=== PATIENT | female | born 1970 | race Caucasian/White ===

== ENCOUNTER 2020-10-03 08:34 | Outpatient (REF) | payer BC, SELFPAY ==
[2020-10-03 11:10] LABS: MANUAL DIFF FLAG NO
[2020-10-03 11:17] LABS: Glucose Urine UA NEG (NEG); Leukocyte Esterase Urine NEG (NEG); Nitrite Urine NEG (NEG); PH 5.5 (5.0-8.0); Specific Gravity - Urine 1.025 (1.005-1.025); Urine Blood NEG (NEG); Urine Ketones NEG (NEG); Urine Protein NEG (NEG-TRACE)
[2020-10-03 11:23] LABS: Basophils Absolute Auto 0.1 X10*3/uL (0.0-0.2); Basophils Percent Auto 0.9 % (0-2); Eosinophils Absolute Auto 0.5 X10*3/uL (0.0-0.4); Eosinophils Percent Auto 8.3 % (0-4); Hematocrit 40.2 % (37-47); Hemoglobin 13.2 g/dl (12.0-16.0); Imm Gran Abs Auto 0.02 X10*3/uL (0.00-0.03); Imm Gran Pct Auto 0.3 % (0.0-0.4); Lymphocytes Absolute Auto 1.7 X10*3/uL (1.2-4.9); Lymphocytes Percent Auto 28.6 % (20-40); Mean Corpuscular HGB Conc 32.8 g/dl (31.0-35.0); Mean Corpuscular Hemoglobin 31.4 pg (27.0-33.0); Mean Corpuscular Volume 95.5 fL (80-98); Mean Platelet Volume 10.9 fL (9.4-12.3); Monocytes Absolute Auto 0.4 X10*3/uL (0.1-1.2); Monocytes Percent Auto 7.6 % (2-11); Neutrophils Absolute Auto 3.2 X10*3/uL (2.0-8.3); Neutrophils Percent Auto 54.3 % (45-73); Platelet Count 224 X10*3/uL (160-400); Red Blood Count 4.21 X10*6/uL (4.20-5.50); Red Cell Distribution Width 11.9 % (11.0-16.0); White Blood Count 5.8 X10*3/uL (4.8-10.8)
[2020-10-03 11:38] LABS: Alanine Aminotransferase 12 U/L (0-31); Albumin Level 4.5 g/dL (3.5-5.0); Alkaline Phosphatase 35 U/L (39-117); Anion Gap 12 (12-20); Aspartate Amino Transferase 20 U/L (5-31); Bilirubin Total 0.6 mg/dL (0.0-1.0); Blood Urea Nitrogen 14 mg/dL (9-16); Calcium 9.6 mg/dL (8.4-10.2); Carbon Dioxide 27 mmol/L (22-29); Chloride 106 mmol/L (96-108); Cholesterol 181 mg/dL; Estimated Glomerular Filt Rate > 60; Glucose Fasting 87 mg/dL (60-99); HDL Cholesterol 61 mg/dL; LDL Cholesterol Calculated 95 mg/dl; Potassium 4.2 mmol/L (3.3-5.1); Sodium 141 mmol/L (135-145); Total Protein 7.1 g/dL (6.5-8.0); Triglycerides 126 mg/dL
[2020-10-03 11:48] LABS: Appearance Urine CLEAR; Color Urine YELLOW
== END 2020-10-03 08:35 | disposition home or self-care (01) ==
LOC: HO.HMGCLDS 08:34
PROVIDERS: PCP Internal Medicine; Visit Provider Internal Medicine
DX: Z00.00 Encounter for general adult medical examination without abnormal findings (principal); I73.00 Raynaud's syndrome without gangrene; J45.20 Mild intermittent asthma, uncomplicated
CPT/HCPCS: 36415; 80053; 80061; 81003; 85025

== ENCOUNTER 2021-10-10 11:36 | Outpatient (REF) | payer BC, SELFPAY ==
[2021-10-10 11:40] LABS: MANUAL DIFF FLAG NO
[2021-10-10 11:45] LABS: Basophils Percent Auto 0.6 % (0-2); Eosinophils Absolute Auto 0.4 X10*3/uL (0.0-0.4); Eosinophils Percent Auto 6.9 % (0-4); Hematocrit 36.3 % (37.0-47.0); Hemoglobin 12.3 g/dl (12.0-16.0); Imm Gran Abs Auto 0.02 X10*3/uL (0.00-0.03); Imm Gran Pct Auto 0.3 % (0.0-0.4); Lymphocytes Absolute Auto 1.5 X10*3/uL (1.2-4.9); Mean Corpuscular HGB Conc 33.9 g/dl (31.0-35.0); Mean Corpuscular Hemoglobin 32.3 pg (27.0-33.0); Mean Corpuscular Volume 95.3 fL (80.0-98.0); Mean Platelet Volume 10.7 fL (9.4-12.3); Monocytes Absolute Auto 0.4 X10*3/uL (0.1-1.2); Monocytes Percent Auto 6.6 % (2-11); Neutrophils Percent Auto 62.6 % (45-73); Platelet Count 223 X10*3/uL (160-400); Red Blood Count 3.81 X10*6/uL (4.20-5.50); Red Cell Distribution Width 12.6 % (11.0-16.0); White Blood Count 6.4 X10*3/uL (4.8-10.8)
[2021-10-10 12:02] LABS: Appearance Urine CLEAR; Color Urine YELLOW; Glucose Urine UA NEG (NEG); Leukocyte Esterase Urine NEG (NEG); Nitrite Urine NEG (NEG); Specific Gravity - Urine >= 1.030 (1.005-1.025); Urine Blood NEG (NEG); Urine Ketones NEG (NEG); Urine Protein NEG (NEG-TRACE)
[2021-10-10 12:13] LABS: Alanine Aminotransferase 14 U/L (0-31); Albumin Level 4.3 g/dL (3.5-5.0); Alkaline Phosphatase 31 U/L (39-117); Anion Gap 12 (12-20); Aspartate Amino Transferase 18 U/L (5-31); Bilirubin Total 0.5 mg/dL (0.0-1.0); Blood Urea Nitrogen 9 mg/dL (9-16); Calcium 8.9 mg/dL (8.4-10.2); Carbon Dioxide 24 mmol/L (22-29); Chloride 106 mmol/L (96-108); Cholesterol 185 mg/dL; Estimated Glomerular Filt Rate > 60; Glucose Fasting 79 mg/dL (60-99); HDL Cholesterol 54 mg/dL; LDL Cholesterol Calculated 100 mg/dl; Potassium 3.8 mmol/L (3.3-5.1); Sodium 138 mmol/L (135-145); Total Protein 6.5 g/dL (6.5-8.0); Triglycerides 157 mg/dL
[2021-10-10 12:21] LABS: Squamous Epithelial Cell Urine 4+ /LPF
[2021-10-10 12:22] LABS: Bacteria Urine 3+ /LPF
[2021-10-10 12:23] LABS: RBC Urine 0 /HPF (0)
== END 2021-10-10 11:37 | disposition home or self-care (01) ==
LOC: HO.LNP 11:36
PROVIDERS: Visit Provider Internal Medicine
DX: Z13.89 Encounter for screening for other disorder (principal)
CPT/HCPCS: 80053; 80061; 81001; 85025

== ENCOUNTER 2022-10-07 10:43 | Outpatient (REF) | payer BC, SELFPAY ==
[2022-10-07 10:49] LABS: MANUAL DIFF FLAG NO
[2022-10-07 11:20] LABS: Appearance Urine Clear; Color Urine Yellow; Glucose Urine UA Negative (Negative); Leukocyte Esterase Urine Negative (Negative); Nitrite Urine Negative (Negative); PH 5.5 (5.0-9.0); Urine Blood Negative (Negative); Urine Ketones Trace mg/dL (Negative); Urine Protein Negative (Neg-Trace)
[2022-10-07 11:24] LABS: Bacteria Urine Trace (None Seen); Hyaline Casts Urine 0-2 /LPF (0-2); RBC Urine 0-2 /HPF (0-2); WBC Urine 0-5 /HPF (0-5)
[2022-10-07 11:35] LABS: Basophils Percent Auto 0.7 % (0-2); Eosinophils Absolute Auto 0.3 X10*3/uL (0.0-0.4); Eosinophils Percent Auto 5.7 % (0-4); Hematocrit 38.6 % (37.0-47.0); Hemoglobin 12.8 g/dl (12.0-16.0); Imm Gran Abs Auto 0.02 X10*3/uL (0.00-0.03); Imm Gran Pct Auto 0.3 % (0.0-0.4); Lymphocytes Absolute Auto 1.8 X10*3/uL (1.2-4.9); Lymphocytes Percent Auto 30.1 % (20-40); Mean Corpuscular HGB Conc 33.2 g/dl (31.0-35.0); Mean Corpuscular Hemoglobin 32.4 pg (27.0-33.0); Mean Corpuscular Volume 97.7 fL (80.0-98.0); Mean Platelet Volume 10.6 fL (9.4-12.3); Monocytes Absolute Auto 0.5 X10*3/uL (0.1-1.2); Monocytes Percent Auto 7.7 % (2-11); Neutrophils Absolute Auto 3.3 x10*3/uL (2.0-8.3); Neutrophils Percent Auto 55.5 % (45-73); Platelet Count 235 X10*3/uL (160-400); Red Blood Count 3.95 X10*6/uL (4.20-5.50); Red Cell Distribution Width 12.5 % (11.0-16.0)
[2022-10-07 12:44] LABS: Alanine Aminotransferase 12 U/L (0-31); Albumin Level 4.2 g/dL (3.5-5.0); Alkaline Phosphatase 29 U/L (39-117); Anion Gap 10 (12-20); Aspartate Amino Transferase 20 U/L (5-31); Bilirubin Total 0.5 mg/dL (0.0-1.0); Blood Urea Nitrogen 8 mg/dL (9-16); Calcium 9.1 mg/dL (8.4-10.2); Carbon Dioxide 26 mmol/L (22-29); Chloride 108 mmol/L (96-108); Cholesterol 169 mg/dL; Estimated Glomerular Filt Rate > 60; Glucose Fasting 85 mg/dL (60-99); HDL Cholesterol 59 mg/dL; LDL Cholesterol Calculated 83 mg/dl; Potassium 3.8 mmol/L (3.3-5.1); Sodium 140 mmol/L (135-145); Total Protein 6.7 g/dL (6.5-8.0); Triglycerides 136 mg/dL
== END 2022-10-07 10:44 | disposition home or self-care (01) ==
LOC: HO.LNP 10:43
PROVIDERS: Visit Provider Internal Medicine
DX: Z00.00 Encounter for general adult medical examination without abnormal findings (principal); I73.00 Raynaud's syndrome without gangrene
CPT/HCPCS: 80053; 80061; 81001; 85025

== ENCOUNTER 2023-10-12 10:44 | Outpatient (REF) | payer BC, SELFPAY ==
[2023-10-12 10:50] LABS: MANUAL DIFF FLAG NO
[2023-10-12 11:44] LABS: Basophils Absolute Auto 0.1 X10*3/uL (0.0-0.2); Basophils Percent Auto 0.8 % (0-2); Eosinophils Absolute Auto 0.6 X10*3/uL (0.0-0.4); Eosinophils Percent Auto 7.6 % (0-4); Hematocrit 39.8 % (37.0-47.0); Hemoglobin 13.4 g/dl (12.0-16.0); Imm Gran Abs Auto 0.02 X10*3/uL (0.00-0.03); Imm Gran Pct Auto 0.3 % (0.0-0.4); Lymphocytes Absolute Auto 2.3 X10*3/uL (1.2-4.9); Lymphocytes Percent Auto 30.1 % (20-40); Mean Corpuscular HGB Conc 33.7 g/dl (31.0-35.0); Mean Corpuscular Hemoglobin 32.3 pg (27.0-33.0); Mean Corpuscular Volume 95.9 fL (80.0-98.0); Mean Platelet Volume 10.8 fL (9.4-12.3); Monocytes Absolute Auto 0.5 X10*3/uL (0.1-1.2); Monocytes Percent Auto 6.5 % (2-11); Neutrophils Absolute Auto 4.1 x10*3/uL (2.0-8.3); Neutrophils Percent Auto 54.7 % (45-73); Platelet Count 265 X10*3/uL (160-400); Red Blood Count 4.15 X10*6/uL (4.20-5.50); Red Cell Distribution Width 12.2 % (11.0-16.0); White Blood Count 7.5 X10*3/uL (4.8-10.8)
[2023-10-12 11:45] LABS: Appearance Urine Clear; Color Urine Yellow; Glucose Urine UA Negative (Negative); Leukocyte Esterase Urine Negative (Negative); Nitrite Urine Negative (Negative); PH 5.5 (5.0-9.0); Urine Blood Negative (Negative); Urine Ketones Negative (Negative); Urine Protein Negative (Neg-Trace)
[2023-10-12 11:49] LABS: Bacteria Urine None Seen (None Seen); Hyaline Casts Urine 0-2 /LPF (0-2); RBC Urine 0-2 /HPF (0-2); Squamous Epithelial Cell Urine 0-2 /HPF (0-2); WBC Urine 0-5 /HPF (0-5)
[2023-10-12 12:13] LABS: Alanine Aminotransferase 14 U/L (0-31); Albumin Level 4.5 g/dL (3.5-5.0); Alkaline Phosphatase 26 U/L (39-117); Anion Gap 13 (12-20); Aspartate Amino Transferase 19 U/L (5-31); Bilirubin Total 0.5 mg/dL (0.0-1.0); Blood Urea Nitrogen 12 mg/dL (9-16); Calcium 9.7 mg/dL (8.4-10.2); Carbon Dioxide 25 mmol/L (22-29); Chloride 105 mmol/L (96-108); Cholesterol 170 mg/dL (<200); Estimated Glomerular Filt Rate > 60; Glucose Fasting 80 mg/dL (60-99); HDL Cholesterol 64 mg/dL (>40); LDL Cholesterol Calculated 52 mg/dL (<100); Potassium 3.7 mmol/L (3.3-5.1); Sodium 139 mmol/L (135-145); Total Protein 7.2 g/dL (6.5-8.0); Triglycerides 272 mg/dL (<150)
== END 2023-10-12 10:45 | disposition home or self-care (01) ==
LOC: HO.LNP 10:44
PROVIDERS: Visit Provider Internal Medicine
DX: Z00.00 Encounter for general adult medical examination without abnormal findings (principal)
CPT/HCPCS: 80053; 80061; 81001; 85025

== ENCOUNTER 2024-02-23 13:50 | Outpatient (AMB) | payer BC, SELFPAY ==
--- NOTE | 2024-02-23 13:57 | A.OFFVIS_ITS ---
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 She is a pleasant and active 53-year-old woman with no significant past medical history except for recent blood work suggesting elevated triglycerides level which is unusual given her prior triglycerides levels were within normal limits. She said over the last 6 months she has been noticing increasing exertional shortness of breath when she does any form of elevation including going to flights of stairs at work. She does get associated pounding in his chest and sometimes lightheadedness and this is been bothering her. No associated chest discomfort. She says on level ground she can walk for a long distance with her dogs and has no significant shortness of breath. She denies any associated chest pain. No orthopnea, PND, leg edema. No prolonged palpitations at rest. Denies any other new symptoms. She says she is here to further workup and evaluate the cause of her shortness of breath which is recent onset she denies any recent pulmonary infection including COVID, said COVID was in 2020. She has not actively smoked since teenage years where she smoked cell them. She was exposed to passive smoking with the parents and her siblings in his young age. She denies any wheezing or cough productive of phlegm. Patient was noticed that on smart watch with minimal exertion heart rate easily pumps up to 140 beats per minute. At rest her heart rate is 68 beats per minute. She says she drinks a lot of water every day but does not have adequate salt in her diet. [facility] Surgical History History of Mohs micrographic surgery for skin cancer Family History Father No problems noted. Mother Lung disease Social History Patient Tobacco Use Status: Never used Tobacco Review of Systems Const Denies chills, Denies daytime sleepiness, Denies fatigue, Denies fever(s), Denies frequent falls, Denies poor appetite, Denies snoring, Denies stops breathing during sleep, Denies weakness, Denies weight gain and Denies weight loss Eyes Denies loss of vision ENT Denies dizziness and Denies hearing loss Card Denies chest pain, Denies claudication, Denies leg edema, Denies lightheadedness, Denies palpitations, Denies dyspnea, Denies dyspnea on exertion and Denies orthopnea Resp Denies cough, Denies excessive phlegm production, Denies dyspnea, Denies dyspnea on exertion, Denies snoring and Denies wheezing GI Denies abdominal pain, Denies hematochezia, Denies change in bowel habits, Denies nausea and Denies vomiting Denies urinary frequency and Denies dysuria Musc Denies arthralgias, Denies muscle weakness, Denies numbness and Denies other (frequent falls) Skin/Breast Denies nail changes and Denies rash Neuro Denies Abnormal speech present, Denies dizziness, Denies frequent falls, Denies loss of vision, Denies memory loss, Denies numbness and Denies weakness Psych Denies depression and Denies memory loss Endo Denies fatigue and Denies palpitations Darryl/Lymph Reports easy bruising and Reports other (anemia) Aller/Immun Denies wheezing Physical Exam Vital Signs: Last Vital Signs Pulse 75 02/23/24 14:02 BP 118/76 02/23/24 14:02 BMI result Body Mass Index 21.5 Const General: cooperative, comfortable, no acute distress, well developed, alert, awake, Physically active and well groomed Nutritional Appearance: well nourished and thin Orientation/consciousness: patient oriented x3 Limitations: no limitations HEENT Head: Yes normocephalic and Yes atraumatic Neck Neck: Yes trachea midline, Yes supple and Yes no JVD Resp Effort & Inspection: normal respiratory effort Auscultation: clear to auscultation bilaterally Cardio Jugular venous distension: no JVD Palpation: normal PMI Rate: regular rate Rhythm: regular rhythm Heart sounds: S1 normal heart sound present, S2 normal heart sound present, no click, no gallops, no murmurs and no rubs GI Auscultation: normal bowel sounds Skin General skin exam: no rashes or lesions noted Neuro General: patient oriented x3 and no focal motor deficits Speech: No Abnormal speech present Extrem General: Yes no clubbing, cyanosis or edema Psych Appearance: grossly normal Office Procedures EKG Details: EKG shows normal sinus rhythm with poor R-wave progression most likely lead placement with no ST T wave changes [id number], Complete Assessment & Plan Assessment & Plan (1) SOB (shortness of breath) on exertion: Code(s): R06.02 - Shortness of breath Category: Medical Plan: Recent onset exertional shortness of breath over the last 6 months which is concerning her with associated rapid pounding in her chest as well as lightheadedness. Patient has no significant risk factors including no significant premature atherosclerosis history in the family although exposed to secondhand smoke in her younger years. Clinically has no obvious significant murmurs. We discussed about pathophysiology of shortness of breath on exertion and various possible reasons. Cardiovascular issues including coronary artery disease with myocardial ischemia as well as LV systolic and diastolic function valvular abnormalities can cause of shortness of breath. Will evaluate with a treadmill exercise stress test as well as an echocardiogram for further evaluation. Other possibilities include underlying pulmonary issues given her exposure to secondhand smoke this is a possibility. Autonomic dysfunction related to cardiac function can be a possibility. I have advised her to increa se her salt intake along with maintain water intake to see if this will improve heart rate response to exercise and reduce her symptoms. If her stress test and echocardiogram within normal limits suggested to pursue further atherosclerotic screening with a coronary calcium score. She would be interested in doing that. I have also advised her to follow up a repeat lipid panel given and abnormal triglycerides recently which was not present in the past and could be an anomalous value. Will follow up in the clinic in 3 months time, sooner p.r.n.. Thank you for allowing me to partake in his care Orders: Orders CA echo transthoracic complete Today R06.02 - Shortness of breath CA stress test Today R06.02 - Shortness of breath CT Coronary Calcium Score 6 Weeks R06.02 - Shortness of breath Coding Level of Care Code New Pt Level 4 (46739) Complex EM visit Add On G2211 Diagnoses SOB (shortness of breath) on exertion R06.02 CPT Codes EKG - CPT: 45034-[id number], Complete ([id number])
[2024-02-23 14:02] VITALS: BP 118/76; PULSE 75; BMI 21.5
--- OUTSIDE RECORDS SUMMARY | 2024-02-24 21:50 | XMS_ITS ---
Author Organization Simon Limon MD Address [address] [place] [phone] Care Team Providers Care Human Resources Operations Manager Name Role Phone Simon Limon Primary Care Provider RESULTS Component Value Reference Range Notes Complete Blood Count Auto Di ff Reviewed date:10/12/2023 01:53:01 PM Interpretation: Performing Lab:[facility], [address] [place] [phone] Notes/Report: White Blood Count 7.5 4.8-10.8 X10*3/uL Red Blood Count 4.15 4.20-5.50 X10*6/uL Hemoglobin 13.4 12.0-16.0 g/dl Hematocrit 39.8 37.0-47.0 % Mean Corpuscular Volume 95.9 80.0-98.0 fL Mean Corpuscular Hemoglobin 32.3 27.0-33.0 pg Mean Corpuscular HGB Conc 33.7 31.0-35.0 g/dl Red Cell Distribution Width 12.2 11.0-16.0 % Platelet Count 265 160-400 X10*3/uL Mean Platelet Volume 10.8 9.4-12.3 fL Neutrophils Percent Auto 54.7 45-73 % Imm Gran Pct Auto 0.3 0.0-0.4 % Lymphocytes Percent Auto 30.1 20-40 % Monocytes Percent Auto 6.5 2-11 % Eosinophils Percent Auto 7.6 0-4 % Basophils Percent Auto 0.8 0-2 % NRBC Pct Auto 0.0 0.0-0.2 /100WBC Neutrophils Absolute Auto 4.1 2.0-8.3 x10*3/u L Imm Gran Abs Auto 0.02 0.00-0.03 X10*3/uL Lymphocytes Absolute Auto 2.3 1.2-4.9 X10*3/u L Monocytes Absolute Auto 0.5 0.1-1.2 X10*3/uL Eosinophils Absolute Auto 0.6 0.0-0.4 X10*3/u L Basophils Absolute Auto 0.1 0.0-0.2 X10*3/uL NRBC Abs Auto 0.000 0.0-0.012 X10*3/uL Comprehensive [place]. Panel Fa st Reviewed date:10/12/2023 05:29:09 PM Interpretation: Performing Lab:[facility], [address] [place] [phone] Notes/Report: Sodium 139 135-145 mmol/L Potassium 3.7 3.3-5.1 mmol/L Chloride 105 96-108 mmol/L Carbon Dioxide 25 22-29 mmol/L Anion Gap 13 12-20 Blood Urea Nitrogen 12 9-16 mg/dL Creatinine 0.80 0.5-1.4 mg/dL Estimated Glomerular Filt Rate > 60 NOTE: For -Maced[place] individuals, multiply the result by 1.210. Chronic Kidney Disease: Estimated GFR < 60 mL/min/1.73m2 Severe Kidney Disease: Estimated GFR < 15 mL/min/1.73m2 Glucose Fasting 80 60-99 mg/dL Calcium 9.7 8.4-10.2 mg/dL Bilirubin Total 0.5 0.0-1.0 mg/dL Aspartate Amino Transferase 19 5-31 U/L Alanine Aminotransferase 14 0-31 U/L Total Protein 7.2 6.5-8.0 g/dL Albumin Level 4.5 3.5-5.0 g/dL Alkaline Phosphatase 26 39-117 U/L Lipid Panel Reviewed date:10/12/2023 12:16:15 PM Interpretation: Performing Lab:[facility], [address] [place] [phone] Notes/Report: Triglycerides 272 <150 mg/dL Desirable Triglyceride: less than 150 mg/dL Borderline High Triglyceride 150-199 mg/dL High Triglyceride: 200-499 mg/dL Very High Triglyceride: greater than or equal to 5OO mg/dL Cholesterol 170 <200 mg/dL Desirable Cholesterol: less than 200 mg/dL Borderline High Cholesterol: 200-239 mg/dL High Cholesterol: greater than 239 mg/dL LDL Cholesterol Calculated 52 <100 mg/dL Desirable LDL: less than 100 mg/dL Near Optimal/Above Optimal LDL: 110-129 mg/dL Borderline High LDL: 130-159 mg/dL High LDL: 160-189 mg/dL Very High LDL: greater than or equal to 190 mg/dL HDL Cholesterol 64 >40 mg/dL Desirable HDL: greater than 40 mg/dL Note: This HDL assay may give artificially low results in patients with liver disease. UA ClnCatch+Micro w/rflx Cul t Reviewed date:10/12/2023 05:29:28 PM Interpretation: Performing Lab:[facility], [address] [place] [phone] Notes/Report: Urine, Clean Catch Color Urine Yellow Appearance Urine Clear PH 5.5 5.0-9.0 Glucose Urine UA Negative Negative mg/dL Urine Blood Negative Negative Specific [place] - Urine 1.020 1.005-1.025 Urine Protein Negative Neg-Trace mg/dL Urine Ketones Negative Negative mg/dL Nitrite Urine Negative Negative Leukocyte Esterase Urine Negative Negative RBC Urine 0-2 0-2 /HPF WBC Urine 0-5 0-5 /HPF Squamous Epithelial Cell Urine 0-2 0-2 /HPF Bacteria Urine None Seen None Seen Hyaline Casts Urine 0-2 0-2 /LPF REASON FOR VISIT FASTING LABS Encounters Encounter Location Date Provider Diagnosis Simon Limon MD [address] [place], [place] [phone] 10/12/2023 Simon Limon Blood tests for routine general physical examination Z00.00 ASSESSMENTS Encounter Date Diagnosis Assessment Notes Treatment Notes Treatment Clinical Notes 10/12/2023 Blood tests for routine general physical examination (ICD-10 - Z00.00) PLAN OF TREATMENT Next Appt Details Provider Name:Simon tavarez, 10/24/2024 07:15:00 AM, [address] [place] [address], [address], [place], [phone], Provider Name:Simon tavarez, 10/31/2024 10:30:00 AM, [address] [place] [address], [address], [place], [phone],
--- OUTSIDE RECORDS SUMMARY | 2024-02-24 21:50 | XMS_ITS ---
Author Organization Simon Limon MD Address [address] [place] [phone] Care Team Providers Care Lpn Cma Name Role Phone BraxtonSimon Primary Care Provider ALLERGIES No Known Allergies RESULTS Component Value Reference Range Notes Electrocardiogram (EKG) Reviewed date:10/27/2023 11:06:01 AM Interpretation: Performing Lab: Notes/Report: 0 REASON FOR REFERRAL Reason shortness of breath on excertion Diagnosis 1 Shortness of breath on exertion (R06.02) Referral Organization iSmon Limon MD Referring Provider First Name Simon Referring Provider Last Name Braxton Referring Provider Speciality Internal M edicine Referred Provider Tomas Gonzalez Referred Provider Specialty Cardiovascul ar Disease General Notes Harper Crowder 11:03:46 AM EDT > needs to be seen by her PCP after this appt , Harper Crowder 11/02/2023 02:36:25 PM EDT > info faxed, patient is on a wait list, DATE INS REFERRAL FOR 11-20-2023, Harper Crowder 11/20/2023 10:20:58 AM EDT > info mailed to patient Referral Priority Routine Referral Appointment Date 02/23/2024 REASON FOR VISIT ANNUAL EXAM, c/o SOB with exertion x 6-9 months MEDICATIONS Medication SIG (Take, Route, Frequency, Duration) Notes Start Date End Date Status ProAir HFA 108 (90 Base) MCG/ACT 2 puffs as needed Inhalation every 4 hrs 08/28/2015 Not-Takin g Dicyclomine HCl 10 MG 2 capsules Orally Four times a day for 30 day(s) Not-Taking Ibuprofen 800 MG 1 tablet Orally Thre e times a day for 90 days Not-Taki ng Flonase 50 MCG/ACT 1 spray in each nost ril Nasally Once a day for 30 day(s) 04/07/2017 Not-Taking June04/04 1-20 MG-MCG TAKE 1 TABLET BY MOUTH EVERY DAY Oral for 28 Active SOCIAL HISTORY Tobacco Use: Social History Observation Description Date Details (start date - stop date) Former Smoker NA - NA Sex Assigned At : Social History Observation Description Sex Assigned At Unknown Tobacco Use/Smoking Question Answer Notes Patient is a former smoker How long has it been since y ou last smoked? > 10 years Additional Findings: Tobacco Non-User Fo rmer smoker, currently using no form of tobacco Alcohol Screen Question Answer Notes Did you have a drink contain ing alcohol in the past year? Yes How often did you have a dri nk containing alcohol in the past year? 2 to 4 times a month (2 points) How many drinks did you have on a typical day when you were drinking in the past year? 1 or 2 drinks (0 point) How often did you have 6 or more drinks on one occasion in the past year? Never (0 point) Points 2 Interpretation Negative VITAL SIGNS BMI 20.25 kg/m2 10/27/2023 Blood pressure systolic 104 mm Hg 10/27/19 24 Blood pressure diastolic 60 mm Hg 024 Height 64 in 10/27/2023 Weight 118 lbs 10/27/2023 weight is up 2 pounds since 05-12-23 Encounters Encounter Location Date Provider Diagnosis Simon Limon MD [address] [place] [address] [place] [phone] 10/27/2023 Simon Limon Shortness of breath on exertion R06.02 ; Annual physical exam Z00.00 ; Mild intermittent asthma without complication J45.20 ; Migraine with aura and without status migrainosus, not intractable G43.109 and Depression screening Z13.31 ASSESSMENTS Encounter Date Diagnosis Assessment Notes Treatment Notes Treatment Clinical Notes 10/27/2023 Shortness of breath on exertion (ICD-10 - R06.02) referral to cardiology 10/27/2023 Annual physical exam (ICD-10 - Z00.00) labs reviewed and discussed with patient 10/27/2023 Mild intermittent asthma without complication (ICD-10 - J45.20) stable, no need for medication at this time 10/27/2023 Migraine with aura and without status migrainosus, not intractable (ICD-10 - G43.109) stable, no need for medication at this time 10/27/2023 Depression screening (ICD-10 - Z13.31) negative screen PLAN OF TREATMENT Treatment Notes Assessment Notes Shortness of breath on exertion referral to cardiology Annual physical exam labs reviewed and d iscussed with patient Mild intermittent asthma wit hout complication stable, no need for medication at this time Migraine with aura and witho ut status migrainosus, not intractable stable, no need for medication at this time Depression screening negative screen Referrals Referral Date Details 02/23/2024 02/23/2024, shortnes s of breath on excertion, Tomas Gonzalez Next Appt Details Follow Up: afterr cardiology , Reason: Provider Name:Simon tavarez, 10/24/2024 07:15:00 AM, [address] [place] [address], [address], [phone], Provider Name:Simon tavarez, 10/31/2024 10:30:00 AM, [address] [place] [address], [address] [place] [address], [phone], Progress Notes * Examination Category Sub-Category Detail Notes General Examination GENERAL APPEARANCE: well dev eloped, well nourished, in no acute distress HEAD: normocephalic, atrau matic EYES: pupils equal, round, reactive to light and accommodation, sclera non- icteric EARS: normal THROAT: clear NECK/THYROID: neck supple, full ra nge of motion, no cervical lymphadenopathy, no bruits HEART: regular rate and rhy thm, S1, S2 normal, no murmurs LUNGS: clear to auscultatio n bilaterally ABDOMEN: soft, nontender, non distended, bowel sounds present, normal, no organomegaly , no masses palpable NEUROLOGIC: nonfocal, motor stre ngth normal upper and lower extremities, sensory exam intact SKIN: warm and dry, no rolan picious lesions EXTREMITIES: no clubbing, cyanosi s, or edema BREASTS: done by narcotics and/or vice detective RECTAL EXAM: done by narcotics and/or vice detective FEMALE GENITOURINARY: done by narcotics and/or vice detective ORAL CAVITY: mucosa moist History and Physical Notes * HPI (History of Present Illness) Category Sub-Category Detail Notes Depression Screening PHQ-9 Little inte rest or pleasure in doing things: Not at all Feeling down, depressed, or hopeless: No t at all Trouble falling or staying asleep, or sl eeping too much: Not at all Feeling tired or having little energy: N ot at all Poor appetite or overeating: Not at all Feeling bad about yourself o r that you are a failure, or have let yourself or your family down: Not at all Trouble concentrating on thi ngs, such as reading the newspaper or watching television: Not at all Moving or speaking so slowly that other people could have noticed; or the opposite, being so fidgety or restless that you have been moving around a lot more than usual: Not at all Thoughts that you would be b enzo off or of hurting yourself in some way: Not at all Total Score: 0 Interpretation and Intervention Depression Isaias zamarripa Findings: Negative Follow-Up for Depression: : review of PH Q-9 found negative result, no follow-up needed SDOH Questions SDOH Questions In the past year have you been worried about losing housing?: No In the past year have you or any family members you live with been unable to get any of the following when it was really needed? Check all that apply:: None Communication Needs Communication Needs Does the patient have a hearing impairment: No Does the patient have a vision impairmen t?: Yes ?If yes, what is the vision impairment?: Glasses Does the patient have a cognition impair ment?: No Consultation Request Notes Referral Date Referring Provider Referred Provider Not rene 10/27/2023 Simon Limon Nirav shortness o f breath on excertion
--- OUTSIDE RECORDS SUMMARY | 2024-02-24 21:50 | XMS_ITS ---
Author Organization Simon Limon MD Address [address] [place] [phone] Care Team Providers Care Electrical Tester Battery Name Role Phone Simon Limon Primary Care Provider ALLERGIES No Known Allergies REASON FOR VISIT SINUS INFECTION,COVID NEG YESTERDAY, C/O headache, runny nose congestion, x 2 days, video [phone], Traveling to [place] 05-15-23 MEDICATIONS Medication SIG (Take, Route, Frequency, Duration) Notes Start Date End Date Status Zithromax Z-Jesus 250 MG 2 tablet on the irst day, then 1 tablet daily for 4 days Orally Once a day for 5 day(s) 05/12/2023 Active Dicyclomine HCl 10 MG 2 capsules Orally Four times a day for 30 day(s) Not-Taking 04/04 1-20 MG-MCG TAKE 1 TABLET BY MOUTH EVERY DAY Oral for 28 Active ProAir HFA 108 (90 Base) MCG/ACT 2 puffs as needed Inhalation every 4 hrs 08/28/2015 Active Ibuprofen 800 MG 1 tablet Orally Thre e times a day for 90 days Not-Taki ng Flonase 50 MCG/ACT 1 spray in each nost ril Nasally Once a day for 30 day(s) 04/07/2017 Not-Taking PROBLEMS Problem Type ICD Code Onset Dates Problem Status W/U Status Risk SNOMED Code Notes Problem Recurrent sinus infections (J32.9) Active confirmed [id number] VITAL SIGNS BMI 19.91 kg/m2 05/12/2023 Height 64 in 05/12/2023 Weight 116 lbs 05/12/2023 weight at home is 116 BP not taken at home Encounters Encounter Location Date Provider Diagnosis Simon Limon MD [address] [place] [phone] 05/12/2023 Simon Limon Recurrent sinus infections J32.9 ASSESSMENTS Encounter Date Diagnosis Assessment Notes Treatment Notes Treatment Clinical Notes 05/12/2023 Recurrent sinus infections (ICD-10 - J32.9) use afrin before flight for 2 days, patient verbalized understanding of medication and instructions PLAN OF TREATMENT Medication Medication Name Sig Start Date Stop Date Notes Zithromax Z-Jesus 250 MG 2 tablet on the f irst day, then 1 tablet daily for 4 days Orally Once a day for 5 day(s) 05/12/2023 Treatment Notes Assessment Notes Recurrent sinus infections use afrin bef ore flight for 2 days, patient verbalized understanding of medication and instructions Next Appt Details Provider Name:Simon tavarez, 10/24/2024 07:15:00 AM, [address] [place] [address], [address], [phone], Provider Name:Simon tavarez, 10/31/2024 10:30:00 AM, [address] [place] [address], [place] [address], [place], [place], [phone], Progress Notes * Examination Category Sub-Category Detail Notes General Examination GENERAL APPEARANCE: alert, w ell hydrated, in no distress History and Physical Notes * HPI (History of Present Illness) Category Sub-Category Detail Notes Symptom(s) Telehealth [facility] of [facility]:: [address] [place] [address], [place] [id number] Location of patient:: at address listed in demographics for today's visit Patient identification confirmed using:: Name, , SSN, Insurance information Telehealth method:: Video co nference where patient is visible to the provider of care Consent:: Patient verbally c onsented to treatment, Patient verbally consented to billing insurance company, Patient informed of any privacy concerns related to method of visit
--- OUTSIDE RECORDS SUMMARY | 2024-02-24 21:50 | XMS_ITS | Patient Health Record ---
Author Organization Simon Limon MD Address [address] [place] [phone] Care Team Providers Care Phosphorus Processing Supervisor Name Role Phone Simon Limon Primary Care Provider [phone] ALLERGIES No Known Allergies RESULTS Component Value Reference Range Notes MAMMOGRAM DIGITAL BILATERAL SCREEN Reviewed date:03/19/2023 03:41:09 PM Interpretation:additional views requested Performing Lab: Notes/Report: additional views requested Hold Gold Reviewed date:10/12/2023 12:14:04 PM Interpretation: Performing Lab:[facility], [address] [place] [phone] Notes/Report: Ramiro Urbano See Note Specimen held untested for 24 hours; Call to request Chemistry testing. Complete Blood Count Auto Di ff Reviewed date:10/12/2023 01:53:01 PM Interpretation: Performing Lab:[facility], [address] [place] [phone] Notes/Report: White Blood Count 7.5 4.8-10.8 X10*3/uL [...] NRBC Abs Auto 0.000 0.0-0.012 X10*3/uL Comprehensive Luna. Panel Fa st Reviewed date:10/12/2023 05:29:09 PM Interpretation: Performing Lab:[facility], [address] [place] [phone] Notes/Report: Sodium 139 135-145 mmol/L Potassium 3.7 3.3-5.1 mmol/L Chloride 105 96-108 mmol/L Carbon Dioxide 25 22-29 mmol/L Anion Gap 13 12-20 Blood Urea Nitrogen 12 9-16 mg/dL Creatinine 0.80 0.5-1.4 mg/dL Estimated Glomerular Filt Rate > 60 NOTE: For -[place]at[place] individuals, multiply the result by 1.210. Chronic [...] Panel Reviewed date:10/12/2023 12:16:15 PM Interpretation: Performing Lab:[facility], [address] [place] [phone] Notes/Report: Triglycerides 272 <150 mg/dL Desirable Triglyceride: [...] t Reviewed date:10/12/2023 05:29:28 PM Interpretation: Performing Lab:[facility], [address] [place] [phone] Notes/Report: Urine, Clean Catch Color Urine Yellow Appearance Urine Clear PH 5.5 5.0-9.0 Glucose Urine UA Negative Negative mg/dL Urine Blood Negative Negative Specific Clinton - Urine 1.020 1.005-1.025 Urine Protein Negative Neg-Trace mg/dL Urine Ketones Negative Negative mg/dL Nitrite Urine Negative Negative Leukocyte Esterase Urine Negative Negative RBC Urine 0-2 0-2 /HPF WBC Urine 0-5 0-5 /HPF Squamous Epithelial Cell Urine 0-2 0-2 /HPF Bacteria Urine None Seen None Seen Hyaline Casts Urine 0-2 0-2 /LPF Electrocardiogram (EKG) Reviewed date:10/27/2023 11:06:01 AM Interpretation: Performing Lab: Notes/Report: REASON FOR REFERRAL Reason shortness of breath on excertion Diagnosis 1 Shortness of breath on exertion (R06.02) Referral Organization Simon Limon MD Referring Provider First Name Simon [...] Referral Priority Routine Referral Appointment Date 02/23/2024 MEDICATIONS Medication SIG (Take, Route, Frequency, Duration) [...] MOUTH EVERY DAY Oral for 28 Active IMMUNIZATIONS Vaccine Route Administration Date Status Comme nts Flu Vaccine Unknown 12/26/2015 Administered [facility] Fluarix Quadrivalent IM Intramuscular 01/26/2017 Administsaige suero [facility] [place]. Fluarix Quadrivalent Unknown 01/13/2019 Administered At work Fluarix Quadrivalent Unknown 01/01/2020 [facility] SARS-COV-2 Moderna Unknown 07/04/2020 Administered SARS-COV-2 Moderna Unknown 08/01/2020 Administered Flu Vaccine Unknown 08/17/2014 Refused SOCIAL HISTORY Tobacco Use: Social History Observation [...] Never (0 point) Points 2 Interpretation Negative PROBLEMS Problem Type ICD Code Onset Dates Problem Status W/U Status Risk SNOMED Code Notes Problem Lumbar disc disease (M51.9) Active confirmed 48380518 Problem Mild intermittent asthma without complication (J45.20) Active confirmed 503827448 Problem Migraine with aura and without status migrainosus, not intractable (G43.109) Active confirmed 9854429 Problem Raynauds disease without gangrene (I73.00) Active confirmed 334262872 Problem Carpal tunnel syndrome of right wrist (G56.01) Active confirmed 414584033829074 Problem Food allergy (Z91.018) Active confirmed Food allergy (144082834) Problem Recurrent sinus infections (J32.9) Active confirmed 662089063 Problem Other microscopic colitis (K52.838) Active confirmed 092096402 VITAL SIGNS Blood pressure diastolic 60 mm Hg 10/27/2023 saúl ght is up 2 pounds since 05-12-23 Height 64 in 10/27/2023 weight is up 2 pounds since 05-12-23 Blood pressure systolic 104 mm Hg 10/27/2023 weig ht is up 2 pounds since 05-12-23 Weight 118 lbs 10/27/2023 weight is up 2 pounds since 05-12-23 BMI 20.25 kg/m2 10/27/2023 weight is up 2 pounds since 05-12-23 Encounters Encounter Location Date Provider Diagnosis Simon Limon MD [address] [place] [phone] 10/27/2023 Simon Limon Shortness of breath on exertion R06.02 ; Annual physical exam Z00.00 ; Mild intermittent asthma without complication J45.20 ; Migraine with aura and without status migrainosus, not intractable G43.109 and Depression screening Z13.31 Simon Limon MD [address] [place] [address] Drive [address] [place] [phone] 10/12/2023 Simon Limon Blood tests for routine general physical examination Z00.00 Simon Limon MD [address] [place] [id number] 05/12/2023 Simon Limon Recurrent sinus infections J32.9 ASSESSMENTS Encounter Date Diagnosis Assessment Notes Treatment Notes Treatment Clinical Notes 10/27/2023 Annual physical exam (ICD-10 - Z00.00) labs reviewed and discussed with patient 10/27/2023 Shortness of breath on exertion (ICD-10 - R06.02) referral to cardiology 10/12/2023 Blood tests for routine general physical examination (ICD-10 - Z00.00) 05/12/2023 Recurrent sinus infections (ICD-10 - J32.9) use afrin before flight for 2 days, patient verbalized understanding of medication and instructions 10/27/2023 Mild intermittent asthma without complication (ICD-10 - J45.20) stable, no need for medication at this time 10/27/2023 Migraine with aura and without status migrainosus, not intractable (ICD-10 - G43.109) stable, no need for medication at this time 10/27/2023 Depression screening (ICD-10 - Z13.31) negative screen PLAN OF TREATMENT Pending Test Test Name Order Date Electrocardiogram (EKG) 09/12/2016 URINALYSIS (UA) 11/03/2019 Next Appt Details Provider Name:Simon tavarez, 10/24/2024 07:15:00 AM, [address] [place] [address], [address], [phone], Provider Name:Simon tavarez, 10/31/2024 10:30:00 AM, [address] [place] [address], [address], [phone], Insurance Providers Payer Name Payer Address Payer Phone Subscriber Number Group Number Insured Name Patient Relationship to Insured Coverage Start Date Coverage End Date [facility] [address] [place], [place] [id number] Vanesa Stanley Self - patient is the insured MEDICAL (GENERAL) HISTORY Medical History History ICD Code no need for further A1C Colonoscopy 06/02/[address] Campbell
== END 2024-02-23 14:38 | disposition home or self-care (01) ==
PROVIDERS: PCP Internal Medicine; Visit Provider Internal Medicine Cardiovascular Disease
DX: R06.02 Shortness of breath (principal)
CPT/HCPCS: 93010; 99204

== ENCOUNTER → 2024-02-23 13:50 | Outpatient (BNVA) | payer BC, SELFPAY | PROVIDERS: PCP Internal Medicine; Visit Provider Internal Medicine Cardiovascular Disease | DX: R06.02 Shortness of breath (principal) | CPT/HCPCS: 93005 ==

== ENCOUNTER → 2024-04-14 07:48 | Outpatient (REF) | payer OTHER, SELFPAY ==
--- NOTE | 2024-04-14 07:50 | CA_ITS ---
Transthoracic Echocardiogram Patient (Last, First, Middle): Vanesa Stanley, Gender: Female Date of : 1970 Age: 53 Procedure Date: 04/14/2024 Procedure Type: Transthoracic Echocardiogram Location: OP Height: 160.02 cm Weight: 54.89 kg BSA: 1.56 m2 Heart Rate: 72 bpm BP: 118 / 76 mmHg Ready Mix Truck Driver: PAULINE Referring MD: Tomas Gonzalez MD Symptoms: R06.02 - Shortness of breath Study Quality: Adequate ECG Rhythm: Sinus Conclusions: - The left ventricular systolic function is normal. The calculated ejection fraction is 63% by biplane method. - No obvious valvular pathology seen on this study. Findings Left Ventricle Normal left ventricular cavity size. There is normal left ventricular wall thickness. The left ventricular systolic function is normal. The calculated ejection fraction is 63% by biplane method. There is no evidence of regional wall motion abnormalities. Diastolic function is normal for age. Right Ventricle Normal right ventricular cavity size and systolic function. Atria Both atria are normal in size. Aortic Valve There is mild calcification of the aortic valve. There is no aortic valve stenosis. There is no aortic valve regurgitation. Possibly trileaflet valve. Mitral Valve The mitral valve appears normal. There is no mitral valve regurgitation. There is no mitral valve stenosis. Pulmonic Valve The pulmonic valve is likely normal. Tricuspid Valve There is no tricuspid valve regurgitation. Tricuspid regurgitation envelope is inadequate for calculation of right ventricular systolic pressure. Great Vessels The asc aorta is normal in size. Venous The inferior vena cava is normal in size and collapses greater than 50% with inspiration. Pericardium/Pleural There is no evidence of pericardial effusion. Prior Study Comparison No prior study available for comparison. Recommendations, Care & Conclusions No obvious valvular pathology seen on this study. Measurements 2D Linear Measurements IVSd: 0.65 0.6-0.9/0.6-1.0 cm LVIDd: 4.34 3.9-5.3/4.2-5.9 cm LVIDd Index: 2.78 2.4-3.2/2.2-3.1 cm/m2 LVIDs: 2.93 2.0-3.6 cm LVPWd: 0.55 0.7-1.1 cm LA Diam: 2.80 2.7-3.8/3.0-4.0 cm LAIDs Index: 1.79 1.5-2.3 cm/m2 LV Mass: 91.72 67-162/88-224 g LV Mass Index: 58.80 43-95/49-115 g/m2 LVOT Diam: 1.90 3.0+(-)1.3 cm 2D Systolic Function EF 4C: 56.80 >55% EF 2C: 70.30 >55% EF BiP: 63.00 >55% Mitral Valve MV Pk E: 0.75 MV PK A: 0.50 MV Decel Time: 185.00 E/A: 1.50 E'Lateral: 9.68 E'Medial: 7.94 E/E' Med: 9.40 E/E' Lat: 7.70 PHT: 54.00 MVA PHT: 4.07 Decel Weber: 4.05 Aortic Valve AoV Pk Guillermo: 1.05 AoV Pk Grad: 4.00 MELL: 2.25 LVOT LVOT Pk Guillermo: 0.81 LVOT Mn Guillermo: 0.60 LVOT VTI: 0.18 LVOT Pk Grad: 3.00 LVOT Mn Grad: 2.00 LVOT Diam: 1.90 LVOT Area: 2.84 Diastolic Function MV Pk E: 0.75 MV Pk A: 0.50 E/A: 1.50 E'Medial: 7.94 E/E' Med: 9.40 E' Laterial: 9.68 E/E' Lat: 7.70 Right Ventricle TAPSE (mm): 21.50 TVS' Guillermo: 10.60 Tricuspid Valve RA Press: 3.00 Great Vessels Aorta Sinus of Valsalva: 3.20 2.0-3.5 cm Ao Asc: 2.90 2.1-3.4 cm Pulmonary Veins Pulm Vein S/D 1.50 Pulmonary Valve PV Pk Guillermo: 0.82 Peak PV Grad: 3.00 Updated in Other Vendor System with Status of Final Cody Franklin MD electronically signed on 04/16/2024 11:53:15 AM with status of Final
--- NOTE | 2024-04-14 07:50 | CA_ITS ---
Acquisition Time: 2024-04-14 08:20:52 Total Exercise Time: 00:07:11 Test Indications: Dyspnea,Dyspnea with Exercise,Palpitations Medications: VITAMIN B &C Protocol: STEPHEN Max HR: 173 BPM 102% of Pred: 168 BPM Max BP: 154/62 mmHG Max Work Load: 8.8 METS Exercise Stress Test with exercise 7 mins 11 secs of Stephen Protocol, achieving 100% MPHR, with reports of 2/10 left sided chest heaviness at the end of the exercise with dizziness and mild SOB that all resolved quickly in recovery, with isolated PVC, with normotensive response to exercise. Without EKG changes meeting criteria for ischemia. Test reviewed with Dr. Franklin. Referred By: Tomas Gonzalez Electronically Signed By: Josef Barraza
--- OUTSIDE RECORDS SUMMARY | 2024-04-14 10:42 | XMS_ITS ---
Author Organization Simon Limon MD Address [address] [place] [phone] Care Team Providers Care Quality Assurance Consultant Name Role Phone Simon Limon Primary Care Provider REASON FOR VISIT REFERRAL FOR DR BISHOP Encounters Encounter Location Date Provider Diagnosis Simon Limon MD [address] [place] [phone] 03/21/2024 Simon Limon Plan Of Treatment Next Appt Details Provider Name:Simon tavarez, 10/24/2024 07:15:00 AM, [address] [facility], [address] [place] [address], [phone], Provider Name:Simon tavarez, 10/31/2024 10:30:00 AM, [address] [facility], [address] [place] [address], [phone], Progress Notes * Vanesa STANLEY ADOB:1970 (53 yo F)Acc No.[id number]:03/21/2024 Patient:?MIKELVanesa Yovani :1970???Age:53 Y???Sex:Female Address:[address] [place] [address], [place] [address] * * Date:?
--- OUTSIDE RECORDS SUMMARY | 2024-04-14 10:42 | XMS_ITS ---
Author Organization Simon Limon MD Address [address] [place] [phone] Care Team Providers Care Rent And Miscellaneous Remittance Clerk Name Role Phone Simon Limon Primary Care Provider Allergies No Known Allergies REASON FOR VISIT sinus since 03-09-24 c/o head congestion sinus pain nonproductive cough, Video [phone] Medications Medication SIG (Take, Route, Frequency, Duration) [...] Location Date Provider Diagnosis Simon Limon MD [address] [place] [address] [phone] 04/01/2024 Simon Limon Acute maxillary sinusitis, recurrence [...] use Next Appt Details Provider Name:Simon tavarez, 10/24/2024 07:15:00 AM, [address] [place] [address], [address], [phone], Provider Name:Simon tavarez, 10/31/2024 10:30:00 AM, [address] [place] [address], [address], [phone], Progress Notes * Vanesa STANLEY ADOB:1970 (53 yo F)Acc No.[id number]:04/01/2024 Patient:?Vanesa STANLEY Provider:?Simon Limon MD :1970???Age:53 Y???Sex:Female D ate:04/01/2024 Address:[address] [place] [address], [facility] Subjective: * Chief Complaints: * ???1. Sinus since 03-09-24 c /o head congestion sinus pain nonproductive cough. 2. Video [phone]. * HPI: ???Symptom(s):?Telehealth?Location of provider rendering services:?[address], [address],?Location of patient:?at address listed in demographics for today's visit,?Patient identification confirmed using:?Name, ,?Telehealth method:?Telephone only. Patient not visible to care provider.,?Consent:?Patient verbally consented to treatment, Patient verbally consented to billing insurance company, Patient informed of any privacy concerns related to method of visit,?Total time spend talking with patient (minutes)?0.? patient is a 53 yo female video telehealth visit, here as emergency with complaint of head congestion, sinus pain and nonprod cough. bronchitis treatment. steroid and inhale and cough medicine. * ROS:?General/Constitutional:?Denies?Chills.?Denies?Fatigue.?Denies?Fever.?Admits?Headache,?sinus headache.?ENT:?Patient denies?decreased sense of smell , any loss of taste , sore throat.?Admits?Ear pain.?Denies?Sore throat.?Respiratory:?Admits?Cough.?Admits?Sputum production.?Gastrointestinal:?Denies?Diarrhea.?Denies?Nausea.?Musculoskeletal:?Patient denies?muscle aches.?Peripheral Vascular:?Patient denies?red and blue toes.? * Medical History:?no need for further A1C, Colonoscopy 06/02/[address] Campbell. * Medications:?Not-Taking/PRN ProAir HFA 108 (90 Base) MCG/ACT Aerosol [...] reviewed and reconciled with the patient * Allergies:?N.K.D.A. Objective: * Vitals:?Ht: 64, Wt: 115, BMI :19.74, Wt-k.16. weight is 115 BP not taken no temp. * Examination: ???General Examination: ?GENERAL APPEARANCE:?alert, well hydrated, in no distress.? Assessment: * Assessment: 1.?Acute maxillary sinusitis , recurrence not specified - J01.00 (Primary)??? Plan: * Treatment: * * The named appointment provid er may or may not be the originator of this progress note, and it is not deemed complete until electronically signed by the appointment provider. Sign off status: Pending * Provider:?Simon Limon MD Date:?0 04/01/2024 Generated for Tierra hartley/Fidel/Marenitting on:?04/14/2024 10:42 AM EST History and Physical Notes * HPI (History of Present Illness) Category Sub-Category Detail Notes Category Not es Symptom(s) Telehealth Location of [facility] rendering services:: [address] [place] [address] Drive, [address] patient is a 53 [...]
--- OUTSIDE RECORDS SUMMARY | 2024-04-14 10:42 | XMS_ITS | Patient Health Record ---
Author Organization Simon Limon MD Address [address] [place] [phone] Care Team Providers Care Roof Tiler Name Role Phone Simon Limon Primary Care Provider Allergies No Known Allergies Results Component Value Reference Range Notes Complete Blood Count Auto Di ff Reviewed date:10/12/2023 01:53:01 PM Interpretation: Performing Lab:[facility], [address] [place] [phone] Notes/Report: White Blood Count 7.5 4.8-10.8 X10*3/uL [...] NRBC Abs Auto 0.000 0.0-0.012 X10*3/uL Comprehensive [place]. Panel Fa st Reviewed date:10/12/2023 05:29:09 PM Interpretation: Performing Lab:[facility], [address] [place] [phone] Notes/Report: Sodium 139 135-145 mmol/L Potassium 3.7 3.3-5.1 mmol/L Chloride 105 96-108 mmol/L Carbon Dioxide 25 22-29 mmol/L Anion Gap 13 12-20 Blood Urea Nitrogen 12 9-16 mg/dL Creatinine 0.80 0.5-1.4 mg/dL Estimated Glomerular Filt Rate > 60 NOTE: For -Chinese individuals, multiply the result by 1.210. Chronic [...] Panel Reviewed date:10/12/2023 12:16:15 PM Interpretation: Performing Lab:[facility], [address] [place] [phone] Notes/Report: Triglycerides 272 <150 mg/dL Desirable Triglyceride: [...] t Reviewed date:10/12/2023 05:29:28 PM Interpretation: Performing Lab:[facility], [address] [place] [phone] Notes/Report: Urine, Clean Catch Color Urine Yellow Appearance Urine Clear PH 5.5 5.0-9.0 Glucose Urine UA Negative Negative mg/dL Urine Blood Negative Negative Specific [place] - Urine 1.020 1.005-1.025 Urine Protein Negative Neg-Trace mg/dL Urine Ketones Negative Negative mg/dL Nitrite Urine Negative Negative Leukocyte Esterase Urine Negative Negative RBC Urine 0-2 0-2 /HPF WBC Urine 0-5 0-5 /HPF Squamous Epithelial Cell Urine 0-2 0-2 /HPF Bacteria Urine None Seen None Seen Hyaline Casts Urine 0-2 0-2 /LPF Electrocardiogram (EKG) Reviewed date:10/27/2023 11:06:01 AM Interpretation: Performing Lab: Notes/Report: Ramiro Urbano Reviewed date:10/12/2023 12:14:04 PM Interpretation: Performing Lab:[facility], [address] [place] [phone] Notes/Report: Hold Gold See Note Specimen held untested for 24 hours; Call to request Chemistry testing. Reason For Referral Reason shortness of breath on excertion Diagnosis [...] Referral Priority Routine Referral Appointment Date 02/23/2024 Medications Medication SIG (Take, Route, Frequency, Duration) Notes Start Date End Date Status Ibuprofen 800 MG 1 tablet Orally Thre e times a day for 90 days Not-Taksean hartley ProAir HFA 108 (90 Base) MCG/ACT [...] times a day for 30 day(s) Not-Taking Immunizations Vaccine Route Administration Date Status Comme nts Flu Vaccine Unknown 12/26/2015 Administered [facility] Fluarix Quadrivalent IM Intramuscular 01/26/2017 Administsaige suero pt [facility] [place]. Fluarix Quadrivalent Unknown 01/13/2019 Administered At work Fluarix Quadrivalent Unknown 01/01/2020 Administered [facility] [employer] SARS-COV-2 Moderna Unknown 07/04/2020 Administered SARS-COV-2 Moderna Unknown 08/01/2020 Administered Flu Vaccine Unknown 08/17/2014 Refused Social History Tobacco Use: Social History Observation Description Date Details (start date - stop date) Former Smoker NA - NA Tobacco Use/Smoking Question Answer Notes Patient is [...] Never (0 point) Points 2 Interpretation Negative Problems Problem Type SNOMED Code ICD Code Onset Dates Problem Status W/U Status Risk Notes Problem 05812518 Lumbar disc disease (M51.9) Active confirmed Problem 958266106 Mild intermittent asthma without complication (J45.20) Active confirmed Problem 4092004 Migraine with aura and without status migrainosus, not intractable (G43.109) Active confirmed Problem 477621870 Raynauds disease without gangrene (I73.00) Active confirmed Problem 972934782345496 Carpal tunnel syndrome of right wrist (G56.01) Active confirmed Problem Food allergy (869638832) Food allergy (Z91.018) Active confirmed Problem 618469460 Recurrent sinus infections (J32.9) Active confirmed Problem 649368842 Other microscopic colitis (K52.838) Active confirmed Vital Signs Blood pressure diastolic 60 mm Hg 10/27/2023 saúl ght is up 2 pounds since 05-12-23 Height 64 in 04/01/2024 weight is 115 B P not taken no temp Blood pressure systolic 104 mm Hg 10/27/2023 weig ht is up 2 pounds since 05-12-23 Weight 115 lbs 04/01/2024 weight is 115 B P not taken no temp BMI 19.74 kg/m2 04/01/2024 weight is 115 B P not taken no temp Encounters Encounter Location Date Provider Diagnosis Simon Limon MD [address] [place] [address] Drive [address] [place] [id number] 10/12/2023 Simon Limon Blood tests for routine general physical examination Z00.00 Simon Limon MD [address] [place] [address] Drive [address] [place] [id number] 04/01/2024 Simon Limon Acute maxillary sinusitis, recurrence not specified J01.00 Simon Limon MD [address] [place] [address] [place] [id number] 05/12/2023 Simon Limon Recurrent sinus infections J32.9 Simon Limon MD [address] [place] [id number] 10/27/2023 Simon Limon Shortness of breath on exertion R06.02 ; Annual physical exam Z00.00 ; Mild intermittent asthma without complication J45.20 ; Migraine with aura and without status migrainosus, not intractable G43.109 and Depression screening Z13.31 Simon Limon MD [address] [place] [id number] 03/21/2024 Simon Limon Assessments Encounter Date Diagnosis (ICD Code) Assessment Notes Treatment Notes Treatment Clinical Notes Section Notes 10/12/2023 Blood tests for routine general physical examination (ICD-10 - Z00.00) 04/01/2024 Acute maxillary sinusitis, recurrence not specified (ICD-10 - J01.00) patient verbalized understandingofmedication and directions for use 05/12/2023 Recurrent sinus infections (ICD-10 - J32.9) use afrin before flight for 2 days, patient verbalized understanding of medication and instructions 10/27/2023 Shortness of breath on exertion (ICD-10 [...] Depression screening (ICD-10 - Z13.31) negative screen Plan Of Treatment Pending Test Test Name Order Date Electrocardiogram (EKG) 09/12/2016 Next Appt Details Provider Name:Simon tavarez, 10/24/2024 07:15:00 AM, [address] [place] [address], Suite [facility], [place], [place], [phone], Provider Name:Simon Morris ier, 10/31/2024 10:30:00 AM, [address], [address], [place], [phone], Insurance Providers Payer Name Payer Address Payer Phone Subscriber Number Group Number Insured Name Patient Relationship to Insured Coverage Start Date Coverage End Date [facility] [address] [place], [place] [id number] Vanesa Stanley Self - patient is the insured Medical (General) History Medical History History ICD Code no need for further A1C Colonoscopy 06/02/[address] Campbell
--- OUTSIDE RECORDS SUMMARY | 2024-04-14 10:43 | XMS_ITS ---
Author Organization Simon Limon MD Address [address] [place] [phone] Care Team Providers Care Electrical Assistant Name Role Phone BraxtonSimon Primary Care Provider Allergies No Known Allergies Results Component Value Reference Range Notes Electrocardiogram (EKG) Reviewed date:10/27/2023 11:06:01 AM Interpretation: Performing Lab: Notes/Report: 0 Reason For Referral Reason shortness of breath [...] c/o SOB with exertion x 6-9 months Medications Medication SIG (Take, Route, Frequency, Duration) [...] MOUTH EVERY DAY Oral for 28 Active Social History Tobacco Use: Social History Observation [...] Never (0 point) Points 2 Interpretation Negative Vital Signs Blood pressure systolic 104 mm Hg 10/27/19 24 Blood pressure diastolic 60 mm Hg 024 Height 64 in 10/27/2023 Weight 118 lbs 10/27/2023 BMI 20.25 kg/m2 10/27/2023 weight is up 2 pounds since 05-12-23 Encounters Encounter Location Date Provider Diagnosis Simon Limon MD [address] [place] [address] [address] [place], [place] [phone] 10/27/2023 Simon Limon Shortness of breath on exertion R06.02 ; Annual physical exam Z00.00 ; Mild intermittent asthma without complication J45.20 ; Migraine with aura and without status migrainosus, not intractable G43.109 and Depression screening Z13.31 Assessments Encounter Date Diagnosis (ICD Code) Assessment Notes Treatment Notes Treatment Clinical Notes Section Notes 10/27/2023 Shortness of breath on exertion [...] - Z13.31) negative screen Plan Of Treatment Treatment Notes Assessment Notes Shortness of breath on exertion referral to cardiology Annual physical exam labs reviewed and d iscussed with patient Mild intermittent asthma wit hout complication stable, no need for medication at this time Migraine with aura and witho ut status migrainosus, not intractable stable, no need for medication at this time Depression screening negative screen Referrals Referral Date Details 10/27/2023 10/27/2023, shortnes s of breath on excertion, Tomas Carlos Next Appt Details Follow Up: afterr cardiology , Reason: Provider Name:Simon tavarez, 10/24/2024 07:15:00 AM, [address] [place] [address], [address], [phone], Provider Name:Simon tavarez, 10/31/2024 10:30:00 AM, [address] [place] [address], [address] [place] [address], [phone], Progress Notes * MIKEL Vanesa ADOB:1970 (53 yo F)Acc No.[id number]:10/27/2023 Progress Notes Patient:Vanesa Neff Provider:?Simon Limon MD :1970???Age:53 Y???Sex:Female D ate:10/27/2023 Address:[address], [phone] Subjective: * Chief Complaints: * ???ANNUAL EXAMc/o SOB with e xertion x 6-9 months * HPI: ???Depression Screening:?PHQ-9?Little interest or pleasure in doing things?Not at all,?Feeling down, depressed, or hopeless?Not at all,?Trouble falling or staying asleep, or sleeping too much?Not at all,?Feeling tired or having little energy?Not at all,?Poor appetite or overeating?Not at all,?Feeling bad about yourself or that you are a failure, or have let yourself or your family down?Not at all,?Trouble concentrating on things, such as reading the newspaper or watching television?Not at all,?Moving or speaking so slowly that other people could have noticed; or the opposite, being so fidgety or restless that you have been moving around a lot more than usual?Not at all,?Thoughts that you would be better off or of hurting yourself in some way?Not at all,?Total Score?0.?Interpretation and Intervention?Depression Screening Findings?Negative,?Follow-Up for Depression?: review of PHQ-9 found negative result, no follow-up needed.?Communication Needs:?Communication Needs?Does the patient have a hearing impairment?No,?Does the patient have a vision impairment??Yes,?If yes, what is the vision impairment??Glasses,?Does the patient have a cognition impairment??No.?SDOH Questions:?SDOH Questions?In the past year have you been worried about losing housing??No,?In the past year have you or any family members you live with been unable to get any of the following when it was really needed? Check all that apply:?None.?Symptom(s):? patient is a 53 yo female here for annual visit with review of recent labs and follow up of chronic issues, feels as though she gets short of breath with stairs. walks a lot. not needing to use inhaler. not hearing any wheezing. did eliptical and had to stop and sit on the bad. * ROS:?General/Constitutional:?Patient denies?fatigue , headache.?Change in appetite?denies.?Chills?denies.?Fever?denies.?Ophthalmologic:?Blurred vision?denies.?Discharge?denies.?Pain?denies.?ENT:?Patient denies?decreased sense of smell , any loss of taste , sore throat.?Decreased hearing?denies.?Sore throat?denies.?Swollen glands?denies.?Endocrine:?Cold intolerance?denies.?Excessive thirst?denies.?Heat intolerance?denies.?Weight loss?denies.?Respiratory:?Cough?denies.?Shortness of breath at rest?denies.?Shortness of breath with exertion?denies.?Wheezing?denies.?Cardiovascular:?Chest pain at rest?denies.?Chest pain with exertion?denies.?Irregular heartbeat?denies.?Shortness of breath?denies.?Gastrointestinal:?Abdominal pain?denies.?Change in bowel habits?denies.?Diarrhea?denies.?Nausea?denies.?Rectal bleeding?denies.?Vomiting?denies .?Genitourinary:?Blood in urine?denies.?Difficulty urinating?denies.?Frequent urination?denies.?Urinary incontinence?Denies.?Musculoskeletal:?Patient denies?muscle aches.?Painful joints?denies.?Weakness?denies.?Peripheral Vascular:?Patient denies?red and blue toes.?Skin:?Dry skin?denies.?Itching?denies.?Denies?Mole(s),? changes in moles, new moles or any lesions of concern.?Denies?Photosensitivity.?Rash?denies.?Neurologic:?Dizziness?denies.?Fainting?denies.?Headache?denies.? * Medical History:? * Surgical History:? * Hospitalization/Major Diagno stic Procedure:? * Family History:?Father: dece ased 69 yrs, diagnosed with Cancer.?Mother: alive 83 yrs.?1 brother(s) , 2 sister(s) . 1 son(s) , 1 daughter(s) . .? Denies mental health/substance abuse family history Mother healthy Father Prostate caner, Denies mental health/substance abuse family history, No pertinent family medical history, Denies mental health/substance abuse family history. * Social History:?Tobacco Use:?Tobacco Use/Smoking?Patient is a?former smoker,?How long has it been since you last smoked??> 10 years,?Additional Findings: Tobacco Non-User?Former smoker, currently using no form of tobacco.?Drugs/Alcohol:?Alcohol Screen?Did you have a drink containing alcohol in the past year??Yes,?How often did you have a drink containing alcohol in the past year??2 to 4 times a month (2 points),?How many drinks did you have on a typical day when you were drinking in the past year??1 or 2 drinks (0 point),?How often did you have 6 or more drinks on one occasion in the past year??Never (0 point),?Points?2,?Interpretation?Negative.?Miscellaneous:?Caffeine: yes, 1-2 cups per day. Children: yes. Community involvements: yes. Exercise: yes, 3-4 times per week walking 3-4 miles. Housing: owning. Living with: spouse. Marital status: . 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 Pets: dog. no Travel outside of the [facility]. * Medications:?TakingJunel 04/04 1-20 MG-MCG Tablet TAKE 1 TABLET BY MOUTH EVERY DAY Oral Taking Junel FE 04/04 1-20 MG-MCG Tablet TAKE 1 TABLET BY MOUTH EVERY DAY Oral Not-Taking/PRNProAir HFA 108 (90 Base) MCG/ACT Aerosol Solution 2 puffs as needed Inhalation every 4 hrsIbuprofen 800 MG Tablet 1 tablet Orally Three times a dayFlonase 50 MCG/ACT Suspension 1 spray in each nostril Nasally Once a dayDicyclomine HCl 10 MG Capsule 2 capsules Orally Four times a dayMedication List reviewed and reconciled with the patientNot-Taking/PRN ProAir HFA 108 (90 Base) MCG/ACT Aerosol Solution 2 puffs as needed Inhalation every 4 hrsNot-Taking/PRN Ibuprofen 800 MG Tablet 1 tablet Orally Three times a dayNot-Taking/PRN Flonase 50 MCG/ACT Suspension 1 spray in each nostril Nasally Once a dayNot-Taking/PRN Dicyclomine HCl 10 MG Capsule 2 capsules Orally Four times a dayMedication List reviewed and reconciled with the patient * Allergies:?N.K.D.A.yes[Aller gies Verified] Objective: * Vitals:?Ht: 64, Wt:118, BMI: 20.25, BP:104/60 weight is up 2 pounds since 05-12-23. * ???Past Orders: ???Lab:Complete Blood Count Auto Diff (Order Date - 10/12/2023) (Collection Date - 10/12/2023) ? Value Reference Range ?White Blood Count 7.5 4. 8-10.8 - X10*3/uL ?Red Blood Count 4.15 L 4.20 -5.50 - X10*6/uL ?Hemoglobin 13.4 12.0-16.0 - g/dl ?Hematocrit 39.8 37.0-47.0 - % ?Mean Corpuscular Volume 95.9 80.0-98.0 - fL ?Mean Corpuscular Hemoglobin 32.3 27.0-33.0 - pg ?Mean Corpuscular HGB Conc 33.7 31.0-35.0 - g/dl ?Red Cell Distribution Width 12.2 11.0-16.0 - % ?Platelet Count 265 160-4 00 - X10*3/uL ?Mean Platelet Volume 10.8 9.4-12.3 - fL ?Neutrophils Percent Auto 54.7 45-73 - % ?Imm Gran Pct Auto 0.3 0. 0-0.4 - % ?Lymphocytes Percent Auto 30.1 20-40 - % ?Monocytes Percent Auto 6.5 2-11 - % ?Eosinophils Percent Auto 7.6 H 0-4 - % ?Basophils Percent Auto 0.8 0-2 - % ?NRBC Pct Auto 0.0 0.0-0. 2 - /100WBC ?Neutrophils Absolute Auto 4.1 2.0-8.3 - x10*3/uL ?Imm Gran Abs Auto 0.02 0. 00-0.03 - X10*3/uL ?Lymphocytes Absolute Auto 2.3 1.2-4.9 - X10*3/uL ?Monocytes Absolute Auto 0.5 0.1-1.2 - X10*3/uL ?Eosinophils Absolute Auto 0.6 H 0.0-0.4 - X10*3/uL ?Basophils Absolute Auto 0.1 0.0-0.2 - X10*3/uL ?NRBC Abs Auto 0.000 0.0-0. 012 - X10*3/uL ???Lab:Comprehensive [place]. P te Fast (Order Date - 10/12/2023) (Collection Date - 10/12/2023) ? Value Reference Range ?Sodium 139 135-145 - mmo l/L ?Bilirubin Total 0.5 0.0- 1.0 - mg/dL ?Aspartate Amino Transferase 19 5-31 - U/L ?Alanine Aminotransferase 14 0-31 - U/L ?Total Protein 7.2 6.5-8. 0 - g/dL ?Albumin Level 4.5 3.5-5. 0 - g/dL ?Alkaline Phosphatase 26 L 39-117 - U/L ?Potassium 3.7 3.3-5.1 - mmol/L ?Chloride 105 96-108 - mm ol/L ?Carbon Dioxide 25 22-29 - mmol/L ?Anion Gap 13 12-20 - ?Blood Urea Nitrogen 12 9-16 - mg/dL ?Creatinine 0.80 0.5-1.4 - mg/dL ?Estimated Glomerular Filt Rate > 60 - ?Glucose Fasting 80 60-9 9 - mg/dL ?Calcium 9.7 8.4-10.2 - m g/dL ???Lab:Lipid Panel (Order Da te - 10/12/2023) (Collection Date - 10/12/2023) ? Value Reference Range ?Triglycerides 272 H <150 - mg/dL ?Cholesterol 170 <200 - m g/dL ?LDL Cholesterol Calculated 52 <100 - mg/dL ?HDL Cholesterol 64 >40 - mg/dL ???Lab:UA ClnCatch+Micro w/r flx Cult (Order Date - 10/12/2023) (Collection Date - 10/12/2023) ? Value Reference Range ?Color Urine Yellow - ?Appearance Urine Clear - ?PH 5.5 5.0-9.0 - ?Glucose Urine UA Negative Neg ative - mg/dL ?Urine Blood Negative Negative - ?Specific [place] - Urine 1.020 1.005-1.025 - ?Urine Protein Negative Neg-Tr neyda - mg/dL ?Urine Ketones Negative Negati ve - mg/dL ?Nitrite Urine Negative Negati ve - ?Leukocyte Esterase Urine Negative Negative - ?RBC Urine 0-2 0-2 - /HPF ?WBC Urine 0-5 0-5 - /HPF ?Squamous Epithelial Cell Urine 0-2 0-2 - /HPF ?Bacteria Urine None Seen None Seen - ?Hyaline Casts Urine 0-2 0-2 - /LPF * Examination: ???General Examination: ?GENERAL APPEARANCE:?well developed, well nourished, in no acute distress.?HEAD:?normocephalic, atraumatic.?EYES:?pupils equal, round, reactive to light and accommodation, sclera non-icteric.?EARS:?normal.?ORAL CAVITY:?mucosa moist.?THROAT:?clear.?NECK/THYROID:?neck supple, full range of motion, no cervical lymphadenopathy, no bruits.?SKIN:?warm and dry, no suspicious lesions.?HEART:?regular rate and rhythm, S1, S2 normal, no murmurs.?LUNGS:?clear to auscultation bilaterally.?BREASTS:?done by electronic repair troubleshooter.?ABDOMEN:?soft, nontender, nondistended, bowel sounds present, normal, no organomegaly , no masses palpable.?RECTAL EXAM:?done by electronic repair troubleshooter.?FEMALE GENITOURINARY:?done by electronic repair troubleshooter.?EXTREMITIES:?no clubbing, cyanosis, or edema.?NEUROLOGIC:?nonfocal, motor strength normal upper and lower extremities, sensory exam intact.? Assessment: * Assessment: 1.?Annual physical exam - Z0 0.00 (Primary)?2.?Shortness of breath on exertion - R06.02?3.?Mild intermittent asthma without complication - J45.20?4.?Migraine with aura and without status migrainosus, not intractable - G43.109?5.?Depression screening - Z13.31? Plan: * Treatment: 2.?Shortness of breath on ex ertion?Imaging: Electrocardiogram (EKG) * Notes: referral to cardiology.? Referral To:Tomas Gonzalez??Cardiovascular Disease ?Reason:shortness of breath on excertion 3.?Mild intermittent asthma without complication? Notes: stable, no need for medication at this time.??4.?Migraine with aura and without status migrainosus, not intractable? Notes: stable, no need for medication at this time.??5.?Depression screening? Notes: negative screen.?? * Procedure Codes:?96916 -ELEC TROCARDIOGRAM, COMPLETE * Follow Up:?afterr cardiology * * Sign off status: Completed true * Provider:?Simon Limon MD Date:?0 10/27/2023 Generated for Tierra hartley/Fidel/eTransmitting on:?04/14/2024 10:42 AM EST History and Physical Notes * HPI (History of Present Illness) Category Sub-Category Detail Notes Category Not es Symptom(s) patient is a 53 yo female here for annual visit with review of recent labs and follow up of chronic issues, feels as though she gets short of breath with stairs. walks a lot. not needing to use inhaler. not hearing any wheezing. did eliptical and had to stop and sit on the bad. Depression Screening PHQ-9 Little inte rest or [...] patient have a cognition impair ment?: No Examination Category Sub-Category Detail Notes Category Not es General Examination GENERAL APPEARANCE: well dev eloped, [...] cyanosi s, or edema BREASTS: done by electronic repair troubleshooter RECTAL EXAM: done by electronic repair troubleshooter FEMALE GENITOURINARY: done by electronic repair troubleshooter ORAL CAVITY: mucosa moist Consultation Request Notes Referral Date Referring Provider Referred Provider Not es 10/27/2023 Simon Limon Nirav shortness o f breath on excertion
== END ==
LOC: HO.CARD 07:48
PROVIDERS: PCP Internal Medicine; Visit Provider Internal Medicine Cardiovascular Disease
DX: R06.02 Shortness of breath (principal)
CPT/HCPCS: 93017; 93306

== ENCOUNTER 2024-05-26 15:05 | Outpatient (AMB) | payer OTHER, SELFPAY ==
--- NOTE | 2024-05-26 15:21 | A.OFFVIS_ITS ---
Vital Signs 05/26/24 15:23 Height 5 ft 3 in Weight 119 lb 14.903 oz BMI 21.2 BP 100/72 Blood Pressure Location Lt brachial Position Sitting Pulse 81 Pulse Source Pulse Oximeter Intake Visit Reasons: 3 mth f/up ett/ echo NS An/Sqq 89(V)15 Sonar System Journeyman Required: No Allergies No Known Allergies Allergy (Verified 05/26/24 15:25) Medication List - Last Reconciled 05/26/24 by Beverly Almanza NP-C ascorbate calcium (vitamin C) 500 mg PO DAILY cholecalciferol (vitamin D3) 25 mcg PO DAILY vitamin B comp and C no.3 (B Complex Plus Vitamin C) 1 cap PO DAILY HPI HPI 3 mth f/up ett/ echo NS: Details: Vanesa is a 53-year-old female with no significant past medical history who is undergoing cardiac evaluation for shortness of breath with exertion. She recently had an echocardiogram, exercise stress test and coronary calcium score and presents for follow-up. Today she reports that she is still noticing some shortness of breath when she over exerts. She has been trying to push herself more on the treadmill. She has a sedentary job however there is a treadmill in her office which she walks on approximately 15 minutes a day. She does not exert because she does not want to get diaphoretic at work. At home she has been adding an incline to her treadmill walking. She has no chest discomfort at rest or during activity. No heart palpitations, lightheadedness, presyncope, syncope. No PND, orthopnea or edema. She has been taking more vitamins. She recently had labs done through her work and her cholesterol was mildly elevated and her blood sugar also was elevated, hemoglobin A1c 6.2. She has no history or family history of diabetes. [facility] Surgical History History of Mohs micrographic surgery for skin cancer Family History Father No problems noted. Mother Lung disease Social History Patient Tobacco Use Status: Never used Tobacco Review of Systems Const All systems reviewed & are unremarkable except as noted in HPI and below ENT Denies dizziness Card Denies chest pain, Denies chest pain at rest, Denies chest pain with activity, Denies rapid heart rate, Denies pedal edema, Denies edema, Denies leg edema, Denies lightheadedness, Denies palpitations, Reports dyspnea on exertion (with exertion) and Denies orthopnea Resp Denies cough and Reports dyspnea on exertion (with exertion) GI Denies hematochezia and Denies change in stool character Musc Denies abnormal gait, Reports limited range of motion, Reports muscle cramps, Denies muscle weakness, Denies numbness, Denies radiating pain into limb, Denies stiffness and Denies tingling Neuro Denies abnormal gait, Denies dizziness, Denies numbness and Denies tingling Endo Denies palpitations Physical Exam Vital Signs: Last Vital Signs Pulse 81 05/26/24 15:23 BP 100/72 05/26/24 15:23 BMI result Body Mass Index 21.2 Const General: cooperative, healthy appearing, comfortable and no acute distress Orientation/consciousness: patient oriented x3 Neck Neck: Yes normal visual inspection Resp Effort & Inspection: normal respiratory effort Auscultation: clear to auscultation bilaterally, no crackles, no rales, no rhonchi and no wheezes Cardio Rate: regular rate Rhythm: regular rhythm Heart sounds: S1 normal heart sound present, S2 normal heart sound present, no gallops, no murmurs and no rubs Neuro General: patient oriented x3 Extrem General: Yes normal to inspection, No no pedal edema and No calf tenderness Psych Appearance: grossly normal Mental Status: mental status grossly normal Speech and movement: Normal speech and movement present Assessment & Plan Assessment & Plan (1) SOB (shortness of breath) on exertion: Code(s): R06.02 - Shortness of breath Category: Medical Plan: Shortness of breath with exertion, occurring in the last year. She underwent cardiac testing with EKG showing sinus rhythm, can not exclude prior anterior infarct. Echocardiogram 04/14/2024 showed EF 63%, no valve abnormalities or noted regional wall motion abnormalities. An exercise stress test 04/14/2024 showed exercise just over 7 minutes with mild chest heaviness and shortness of breath, no EKG changes of ischemia. A coronary calcium score of 0 was done on 04/12/2024. Test results reviewed with her in detail. Her shortness of breath may be related to deconditioning. She has been increasing her exercise. No cardiac findings for her symptom. (2) Elevated hemoglobin A1c: Code(s): R73.09 - Other abnormal glucose Category: Medical Plan: She does show me recent labs from work with mildly elevated cholesterol, blood s ugar and hemoglobin A1c 6.2. This puts her in the pre diabetes category. Discuss this finding with her and instructed to further discuss with her PCP. Recommended at her labs be followed. Continue diet control and exercise. Plan Time spent on chart review, documentation, interview and assessment Coding Level of Care Code Est Pt Level 3 (44795) Complex EM visit Add On G2211 Diagnoses SOB (shortness of breath) on exertion R06.02 Elevated hemoglobin A1c R73.09 Time Spent (min) 22
[2024-05-26 15:23] VITALS: BP 100/72; PULSE 81; BMI 21.2
--- OUTSIDE RECORDS SUMMARY | 2024-05-26 18:49 | XMS_ITS ---
Author Organization Simon Limon MD Address [address] [place] [phone] Care Team Providers Care Sales Engineer Name Role Phone Simon Limon Primary Care Provider Allergies No Known Allergies REASON FOR VISIT sinus since 03-09-24 c/o head congestion sinus pain nonproductive cough, Video [phone] Medications Medication SIG (Take, Route, Frequency, Duration) [...] Location Date Provider Diagnosis Simon Limon MD [address] [place] [address] [phone] 04/01/2024 Simon Limon Acute maxillary sinusitis, recurrence [...] Details Provider Name:Simon tavarez, 10/24/2024 07:15:00 AM, [address] [place] [address], [address], [phone], Provider Name:Simon tavarez, 10/31/2024 10:30:00 AM, [address] [place] [address], [address], [phone], Progress Notes * Vanesa STANLEY ADOB:1970 (53 yo F)Acc No.[id number]:04/01/2024 Patient:?Vanesa STANLEY Provider:?Simon Limon MD :1970???Age:53 Y???Sex:Female D ate:04/01/2024 Address:[address] [place] [address], [facility] Subjective: * Chief Complaints: * ???1. Sinus since 03-09-24 c /o head congestion sinus pain nonproductive cough. 2. Video [phone]. * HPI: ???Symptom(s):?Telehealth?Location of provider rendering services:?10 [...] MD Date:?0 04/01/2024 Generated for Tierra hartley/Fidel/Marenitting on:?05/26/2024 06:49 PM EDT History and Physical Notes * HPI (History of Present Illness) Category Sub-Category Detail Notes Category Not es Symptom(s) Telehealth Location of [facility] rendering services:: [address], [address] patient is a 53 [...]
--- OUTSIDE RECORDS SUMMARY | 2024-05-26 18:49 | XMS_ITS | Patient Health Record ---
Author Organization Simon Limon MD Address [address] [place] [address] [phone] Care Team Providers Care Electric Motor Tester Assembler Name Role Phone Simon Limon Primary Care Provider [phone] Allergies No Known Allergies Results Component Value Reference Range Notes Complete Blood Count Auto Di ff Reviewed date:10/12/2023 01:53:01 PM Interpretation: Performing Lab:[facility], [address] [place] [phone] Notes/Report: White Blood Count 7.5 4.8-10.8 X10*3/uL [...] NRBC Abs Auto 0.000 0.0-0.012 X10*3/uL Comprehensive [place]. Panel Fa st Reviewed date:10/12/2023 05:29:09 PM Interpretation: Performing Lab:[facility], [address] [place] [phone] Notes/Report: Sodium 139 135-145 mmol/L Potassium 3.7 3.3-5.1 mmol/L Chloride 105 96-108 mmol/L Carbon Dioxide 25 22-29 mmol/L Anion Gap 13 12-20 Blood Urea Nitrogen 12 9-16 mg/dL Creatinine 0.80 0.5-1.4 mg/dL Estimated Glomerular Filt Rate > 60 NOTE: For -[place] individuals, multiply the result by 1.210. Chronic [...] Panel Reviewed date:10/12/2023 12:16:15 PM Interpretation: Performing Lab:[facility], [address] [place] [phone] Notes/Report: Triglycerides 272 <150 mg/dL Desirable Triglyceride: [...] t Reviewed date:10/12/2023 05:29:28 PM Interpretation: Performing Lab:[facility], [address] [place] [phone] Notes/Report: Urine, Clean Catch Color Urine Yellow Appearance Urine Clear PH 5.5 5.0-9.0 Glucose Urine UA Negative Negative mg/dL Urine Blood Negative Negative Specific [place] - Urine 1.020 1.005-1.025 Urine Protein Negative [...] Urbano Reviewed date:10/12/2023 12:14:04 PM Interpretation: Performing Lab:[facility], [address] [place] [phone] Notes/Report: Hold Gold See Note Specimen held untested for 24 hours; Call to request Chemistry testing. Reason For Referral Reason shortness of breath on excertion Diagnosis 1 Shortness of breath on exertion (R06.02) Referral Organization Simon Limon MD Referring Provider First Name Simon Referring Provider Last Name Braxton Referring Provider Speciality Internal M edicine Referred Provider Tomas Goznalez Referred Provider Specialty Cardiovascul ar Disease General [...] [facility] Fluarix Quadrivalent IM Intramuscular 01/26/2017 [facility] [place] Fluarix Quadrivalent Unknown 01/13/2019 Administered At work Fluarix Quadrivalent Unknown 01/01/2020 Administered [employer] SARS-COV-2 Moderna Unknown 07/04/2020 Administered SARS-COV-2 Moderna [...] Problem Status W/U Status Risk Notes Problem 45390819 Lumbar disc disease (M51.9) Active confirmed Problem 782315968 Mild intermittent asthma without complication (J45.20) Active confirmed Problem 6808794 Migraine with aura and without status migrainosus, not intractable (G43.109) Active confirmed Problem 459459832 Raynauds disease without gangrene (I73.00) Active confirmed Problem 064565213102517 Carpal tunnel syndrome of right wrist (G56.01) Active confirmed Problem Food allergy (300803323) Food allergy (Z91.018) Active confirmed Problem 155666777 Recurrent sinus infections (J32.9) Active confirmed Problem 234507004 Other microscopic colitis (K52.838) Active confirmed Vital [...] Location Date Provider Diagnosis Simon Limon MD [address] [place] [address] Drive [address] [place] [phone] 10/12/2023 Simon Limon Blood tests for routine general physical examination Z00.00 Simon Limon MD [address] [place] [address] Drive [address] [place] [phone] 04/01/2024 Simon Limon Acute maxillary sinusitis, recurrence not specified J01.00 Simon Limon MD [address] [place] [address] Drive [address] [place] [phone] 10/27/2023 Simon Limon Shortness of breath on exertion R06.02 ; Annual physical exam Z00.00 ; Mild intermittent asthma without complication J45.20 ; Migraine with aura and without status migrainosus, not intractable G43.109 and Depression screening Z13.31 Simon Limon MD [address] [place] [address] Drive [address] [place] [phone] 03/21/2024 Simon Limon Assessments Encounter Date Diagnosis (ICD Code) Assessment Notes Treatment Notes Treatment Clinical Notes Section Notes 10/12/2023 Blood tests for routine general physical examination (ICD-10 - Z00.00) 04/01/2024 Acute maxillary sinusitis, recurrence not specified (ICD-10 - J01.00) patient verbalized understandingofmedication and directions for use 10/27/2023 Shortness of breath on exertion (ICD-10 [...] Details Provider Name:Simon tavarez, 10/24/2024 07:15:00 AM, [address] [place] [address], [phone], Provider Name:Simon tavarez, 10/31/2024 10:30:00 AM, [address] [place] [address], [phone], Insurance Providers Payer Name Payer Address Payer Phone Subscriber Number Group Number Insured Name Patient Relationship to Insured Coverage Start Date Coverage End Date [facility] [address] [place], [place] [id number] Vanesa Stanley Self - patient is the insured Medical (General) History Medical History History ICD Code no need for further A1C Colonoscopy 06/02/[address] Campbell
--- OUTSIDE RECORDS SUMMARY | 2024-05-26 18:50 | XMS_ITS ---
Author Organization Simon Limon MD Address [address] [place] [phone] Care Team Providers Care Polysomnography Technician Name Role Phone Simon Limon Primary Care Provider [phone] REASON FOR VISIT REFERRAL FOR DR BISHOP Encounters Encounter Location Date Provider Diagnosis Simon Limon MD [address] [place] [phone] 03/21/2024 Simon Limon Plan Of Treatment Next Appt Details Provider Name:Simon tavarez, 10/24/2024 07:15:00 AM, 10 [facility], [address] [place] [address], [phone], Provider Name:Simon tavarez, 10/31/2024 10:30:00 AM, [address] [facility], [address] [place] [address], [phone], Progress Notes * Vanesa STANLEY ADOB:1970 (53 yo F)Acc No.[id number]:03/21/2024 Patient:?Vanesa STANLEY Yovani :1970???Age:53 Y???Sex:Female Address:[address] [place] [address], [place] [address] * true * Date:? Generated for Tierra hartley/Fidel/eTransmitting on:?05/26/2024 06:49 PM EDT
--- OUTSIDE RECORDS SUMMARY | 2024-05-26 18:50 | XMS_ITS ---
Author Organization Simon Limon MD Address [address] [place] [address] [phone] Care Team Providers Care Glue Reel Operator Name Role Phone BraxtonSimon Primary Care Provider [...] Location Date Provider Diagnosis Simon Limon MD [address] [place] [address] [address] [place], [place] [phone] 10/27/2023 Simon Limon Shortness of breath on [...] Reason: Provider Name:Simon tavarez, 10/24/2024 07:15:00 AM, [address] [place] [address], [address], [phone], Provider Name:Simon tavarez, 10/31/2024 10:30:00 AM, [address] [place] [address], [address] [place] [address], [phone], Progress Notes * MIKEL Vanesa ADOB:1970 (53 yo F)Acc No.[id number]:10/27/2023 Progress Notes Patient:Vanesa Neff Provider:?Simon Limon MD :1970???Age:53 Y???Sex:Female D ate:10/27/2023 Address:[address], [phone] Subjective: * Chief Complaints: * ???ANNUAL EXAMc/o [...] Pets: dog. no Travel outside of the [facility]. * Medications:?TakingJunel 04/04 1-20 MG-MCG Tablet TAKE [...] Auto 0.000 0.0-0. 012 - X10*3/uL ???Lab:[facility]prehensive [place]. P te Fast (Order Date - 10/12/2023) [...] mg/dL ?Urine Blood Negative Negative - ?Specific [place] - Urine 1.020 1.005-1.025 - ?Urine Protein [...] normal, no murmurs.?LUNGS:?clear to auscultation bilaterally.?BREASTS:?done by product inspection coordinator.?ABDOMEN:?soft, nontender, nondistended, bowel sounds present, normal, no organomegaly , no masses palpable.?RECTAL EXAM:?done by product inspection coordinator.?FEMALE GENITOURINARY:?done by product inspection coordinator.?EXTREMITIES:?no clubbing, cyanosis, or edema.?NEUROLOGIC:?nonfocal, motor strength normal [...] time.??5.?Depression screening? Notes: negative screen.?? * Procedure Codes:?58483 -ELEC TROCARDIOGRAM, COMPLETE * Follow Up:?afterr cardiology * * Sign off status: Completed true * Provider:?Simon Limon MD Date:?0 10/27/2023 Generated for Tierra hartley/Fidel/eTransmitting on:?05/26/2024 06:49 PM EDT History and Physical [...] cyanosi s, or edema BREASTS: done by product inspection coordinator RECTAL EXAM: done by product inspection coordinator FEMALE GENITOURINARY: done by product inspection coordinator ORAL CAVITY: mucosa moist Consultation Request Notes Referral Date Referring Provider Referred Provider Not es 10/27/2023 Simon Limon, Tomas shortness o f breath on excertion
== END 2024-05-26 16:00 | disposition home or self-care (01) ==
PROVIDERS: PCP Internal Medicine; Visit Provider Nurse Practitioner Family
DX: R06.02 Shortness of breath (principal); R73.09 Other abnormal glucose
CPT/HCPCS: 99213

== ENCOUNTER → 2024-05-26 15:05 | Outpatient (BNVA) | payer OTHER, SELFPAY | PROVIDERS: PCP Internal Medicine; Visit Provider Nurse Practitioner Family ==

== ENCOUNTER 2024-10-21 10:58 | Outpatient (REF) | payer OTHER, SELFPAY ==
--- OUTSIDE RECORDS SUMMARY | 2024-10-21 11:00 | XMS_ITS | Patient Health Record ---
Author Organization [facility] Address [address] [place] [address] Care Team Providers Care Emergency Planner Name Role Phone Braxton PHAM, Simon Primary Care Provider Jose Antonio Pettit [phone] Allergies Allergen (clinical drug ingredient) Drug/Non Drug Allergy documented on EMR Reaction Allergy Type Onset Date Status mesalamine Lialda Diarrhea,H/A,abd ominal pain Drug Allergy Active Reason For Referral No Information Medications Medication SIG (Take, Route, Frequency, Duration) Notes Start Date End Date Status Dicyclomine HCl 10 MG TAKE 1 TO 2 CAPSUL ES BY MOUTH 4 TIMES DAILY NEEDED. for 15 Active 04/04 1-20 MG-MCG TAKE 1 TABLET BY MOUTH EVERY DAY Oral for 28 BCP Active Ibuprofen 800 MG TAKE 1 TABLET BY MICHAEL TH 3 TIMES A DAY Oral as needed Back pain Active Norvasc as needed Active ProAir HFA 108 (90 Base) MCG/ACT 2 puffs as needed Inhalation as needed Active Hair Skin and Nails Formula 2 tablets once a day/prn Active Immunizations Vaccine Route Administration Date Status Comme nts Influenza Unknown 01/14/2018 Administered Social History Tobacco Use: Social History Observation Description Date Details (start date - stop date) Former Smoker NA - NA Tobacco Use/Smoking Question Answer Notes Patient is a former smoker How long has it been since you last smoked? > 10 years Alcohol Screen Question Answer Notes Did you have a drink contain ing alcohol in the past year? Yes How often did you have a dri nk containing alcohol in the past year? 2 to 3 times a week (3 points) How many drinks did you have on a typical day when you were drinking in the past year? 1 or 2 drinks (0 point) How often did you have 6 or more drinks on one occasion in the past year? Never (0 point) Points 3 Interpretation Positive Section Notes: Nonsmoker; no sig alcohol--o ccasional beer and wine Nonsmoker; no sig alcohol--o ccasional beer and wine Nonsmoker; no sig alcohol--o ccasional beer and wine Problems Problem Type SNOMED Code ICD Code Onset Dates Problem Status W/U Status Risk Notes Problem 898341645 Abdominal bloating (R14.0) Active confirmed Problem 428091937 Change in bowel function (R19.4) Active confirmed Problem 14315095 Lymphocytic colitis (K52.832) Active confirmed Problem 712186450 Change in bowel function (R19.8) Active confirmed Plan Of Treatment Pending Test Test Name Order Date CRP 06/02/2017 CBC with MANUAL DIFFERENTIAL 06/02/2017 SED RATE (ESR) 06/02/2017 Future Test Test Name Order Date COLONOSCOPY 04/23/2017 Insurance Providers Payer Name Payer Address Payer Phone Subscriber Number Group Number Insured Name Patient Relationship to Insured Coverage Start Date Coverage End Date [facility] [id number] [address] [place] [address] [id number] KENDRA STANLEY Self - patient is the insured Medical (General) History Medical History History ICD Code Asthma--inhaler prn Denies MS,DM,CVA,,renal disease Kidney stones--ESWL Raynaud's--uses Norvasc prn Lymphocytic colitis diagnose d in May of 2017--colonoscopy was otherwise completely normal--laboratories for celiac disease were negative--- she had a negative small bowel series. She responded very well to budesonide that was started in May of 2017 and finished in September of 2017 --- she was started on mesalamine in August of 2017--she had to stop mesalamine due to headaches, abdominal pain, and diarrhea Surgical History Surgery Date(Month/Year) MOHS SURGERY for Basal Carcinoma 2017 kidney stones
--- OUTSIDE RECORDS SUMMARY | 2024-10-21 11:00 | XMS_ITS | Patient Health Record ---
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 Fluarix Quadrivalent Unknown 01/13/2019 Administered At work Fluarix Quadrivalent Unknown 01/01/2020 Administered [employer] SARS-COV-2 Moderna Unknown 07/04/2020 Administered SARS-COV-2 Moderna [...] Problem Status W/U Status Risk Notes Problem 37686754 Lumbar disc disease (M51.9) Active confirmed Problem 098456426 Mild intermittent asthma without complication (J45.20) Active confirmed Problem 6582972 Migraine with aura and without status migrainosus, not intractable (G43.109) Active confirmed Problem 379241600 Raynauds disease without gangrene (I73.00) Active confirmed Problem 810361789435066 Carpal tunnel syndrome of right wrist (G56.01) Active confirmed Problem Food allergy (202202970) Food allergy (Z91.018) Active confirmed Problem 413750751 Recurrent sinus infections (J32.9) Active confirmed Problem 344537490 Other microscopic colitis (K52.838) Active confirmed Vital [...] Location Date Provider Diagnosis Simon Limon MD [address] [place] [id number] 04/01/2024 Simon Limon Acute maxillary sinusitis, recurrence not specified J01.00 Simon Limon MD [address] [place] [id number] 10/21/2024 Simon Limon Blood tests for routine general physical examination Z00.00 Simon Limon MD [address] [place] [id number] 10/27/2023 Simon Limon Shortness of breath on exertion R06.02 ; Annual physical exam Z00.00 ; Mild intermittent asthma without complication J45.20 ; Migraine with aura and without status migrainosus, not intractable G43.109 and Depression screening Z13.31 Simon Limon MD [address] [place] [address] Drive [address] [place] [id number] 03/21/2024 Simon Limon MD [address] [place] [address] Drive [address] [place] [id number] 06/22/2024 Simon Limon MD [address] [place], [place] [id number] 06/23/2024 Simon Limon MD [address] [place] [id number] 07/04/2024 Simon Limon MD [address] [place] [id number] 07/04/2024 Simon Limon MD [address] [place] [id number] 08/09/2024 Simon Limon Assessments Encounter Date Diagnosis (ICD Code) Assessment Notes Treatment Notes Treatment Clinical Notes Section Notes 04/01/2024 Acute maxillary sinusitis, recurrence not specified (ICD-10 - J01.00) patient verbalized understandingofmedication and directions for use 10/21/2024 Blood tests for routine general physical examination (ICD-10 - Z00.00) 10/27/2023 Shortness of breath on exertion (ICD-10 [...] Test Name Order Date Electrocardiogram (EKG) 09/12/2016 Complete Blood Count Auto Diff 5 Comprehensive [place]. Panel Fast 5 Lipid Panel 10/21/2024 UA ClnCatch+Micro w/rflx Cult 10/21/2024 Next Appt Details Provider Name:Simon Morris ier, 10/31/2024 10:30:00 AM, [address], [address], [place], [place], [phone], Insurance Providers Payer Name Payer Address Payer Phone Subscriber Number Group Number Insured Name Patient Relationship to Insured Coverage Start Date Coverage End Date [facility] [id number] [place], [place] [id number] Vanesa Stanley Self - patient is the insured Medical (General) History Medical History History ICD Code no need for further A1C Colonoscopy 06/02/[address] Campbell
[2024-10-21 11:02] LABS: MANUAL DIFF FLAG NO
[2024-10-21 11:24] LABS: Appearance Urine Cloudy; Glucose Urine UA Negative (Negative); PH 5.5 (5.0-9.0); Specific Gravity - Urine 1.025 (1.005-1.025); UMIC TRIGGER UACC YES
[2024-10-21 11:27] LABS: UACC Culture Trigger YES
[2024-10-21 11:41] LABS: Hematocrit 43.1 % (37.0-47.0); Hemoglobin 14.4 g/dl (12.0-16.0); Imm Gran Abs Auto 0.01 X10*3/uL (0.00-0.03); Imm Gran Pct Auto 0.2 % (0.0-0.4); Lymphocytes Absolute Auto 1.8 X10*3/uL (1.2-4.9); Mean Corpuscular HGB Conc 33.4 g/dl (31.0-35.0); Mean Corpuscular Hemoglobin 31.3 pg (27.0-33.0); Mean Corpuscular Volume 93.7 fL (80.0-98.0); NRBC Abs Auto 0.000 X10*3/uL (0.0-0.012); NRBC Pct Auto 0.0 /100WBC (0.0-0.2); Platelet Count 264 X10*3/uL (160-400); Red Blood Count 4.60 X10*6/uL (4.20-5.50); White Blood Count 5.5 X10*3/uL (4.8-10.8)
[2024-10-21 12:08] LABS: Alanine Aminotransferase 25 U/L (0-31); Albumin Level 5.0 g/dL (3.5-5.0); Alkaline Phosphatase 75 U/L (39-117); Anion Gap 14 (12-20); Aspartate Amino Transferase 30 U/L (5-31); Blood Urea Nitrogen 13 mg/dL (9-16); Calcium 10.6 mg/dL (8.4-10.2); Carbon Dioxide 29 mmol/L (22-29); Chloride 104 mmol/L (96-108); Cholesterol 218 mg/dL (<200); Estimated Glomerular Filt Rate > 60; HDL Cholesterol 79 mg/dL (>40); Potassium 3.9 mmol/L (3.3-5.1); Sodium 143 mmol/L (135-145); Total Protein 7.7 g/dL (6.5-8.0); Triglycerides 126 mg/dL (<150)
== END 2024-10-21 10:59 | disposition home or self-care (01) ==
LOC: HO.LNP 10:58
PROVIDERS: Visit Provider Internal Medicine
DX: Z00.00 Encounter for general adult medical examination without abnormal findings (principal); Z13.6 Encounter for screening for cardiovascular disorders; Z13.0 Encounter for screening for diseases of the blood and blood-forming organs and certain disorders involving the immune mechanism
CPT/HCPCS: 80053; 80061; 81001; 85025; 87086

== ENCOUNTER 2024-10-31 13:06 | Outpatient (REF) | payer OTHER, SELFPAY ==
[2024-10-31 13:20] LABS: Calcium 10.3 mg/dL (8.4-10.2)
--- OUTSIDE RECORDS SUMMARY | 2024-10-31 14:01 | XMS_ITS | Clinical Summary ---
Author Organization [facility] Address [address] [place] [phone] Phone Care Team Providers Care Javascript Programmer Name Role Phone Simon Limon MD Primary Care Provider Allergies No known active allergies Medications , 1 mg-20 mcg (21)/75 mg (7) per tablet TAKE 1 TABLET BY MOUTH EVERY DAY. ACTIVE PILLS ONLY - SKIP PLACEBO PILLS Active Active Problems Problem Noted Date Diagnosed Date Epidermal inclusion cyst 11/30/2023 History of basal cell carcinoma 11/30/2023 Family History Medical History Relation Comments Cancer Father Lung disease Mother Relation Status Comments Father Mother Alive Social History Tobacco Use Types Packs/Day Years Used Date Smoking Tobacco: Former Cigarettes Tobacco Cessation:Counseling Given: Not Answered Alcohol Use Standard Drinks/Week Comments Yes 0 (1 standard drink = 0.6 oz pur e alcohol) Education Answer Date Recorded Are you interested in more education? Not on olegario e 11/26/2023 Are you concerned about learning? Not on file 11/26/2023 No 11/26/2023 No 11/26/2023 Digital Access Answer Date Recorded No 11/26/2023 No 11/26/2023 Reliable internet access at home? Not on file 11/26/2023 Device with a working camera? Not on file Comments Unknown Sex and Gender Information Value Date Recorded Sex Assigned at Not on file Legal Sex Female 3:23 PM EDT Gender Identity Not on file Sexual Orientation Not on file Last Filed Vital Signs Vital Sign Reading Time Taken Comments Blood Pressure 138/71 11/30/2023 3:47 PM EDT Pulse 68 11/30/2023 3:47 PM EDT Temperature - - Respiratory Rate - - Oxygen Saturation - - Inhaled Oxygen Concentration - - Weight 54.3 kg (119 lb 12.8 oz) 11/30/2023 3:47 PM EDT Height 160 cm (5' 3 ) 11/30/2023 3:47 PM EDT Body Mass Index 21.22 11/30/2023 3:47 PM EDT Plan of Treatment Health Maintenance Due Date Last Done Comments Adult Td,Tdap Booster 1970 LIPID PANEL 1970 DEPRESSION SCREENING 1983 SMOKING Hx and SMOKELESS TOB ACCO SCREENING 06/07/1984 HEPATITIS C SCREENING 06/07/1989 HIV ONE-TIME SCREENING (18-6 5 YEARS) 06/07/1989 PAP SMEAR 06/07/1992 MAMMOGRAM 2011 COLOGUARD 06/07/2016 COLONOSCOPY 06/07/2016 COLORECTAL CANCER SCREENING 06/07/2016 FIT TEST 06/07/2016 FOBT 06/07/2016 SIGMOIDOSCOPY 06/07/2016 VIRTUAL COLONOSCOPY 06/07/2016 PNEUMOCOCCAL VACCINES (50+ y ears) (1 of 1 - PCV) 06/07/2021 ZOSTER VACCINES (1 of 2) 06/07/2021 COVID-19 VACCINE ( - 2023-2 5 season) 2023 HEPATITIS A VACCINES Aged Out No long er eligible based on patient's age to complete this topic HIB VACCINES Aged Out No longer eligi ble based on patient's age to complete this topic MENINGOCOCCAL VACCINES (ACWY) Aged Out No longer eligible based on patient's age to complete this topic MENINGOCOCCAL VACCINES (B) Aged Out N o longer eligible based on patient's age to complete this topic Medical Devices Not on file Insurance [facility] Care Teams Javascript Programmer Relationship Specialty Start Date End Date Simon Limon MD [address] [place] [address] [place] [address] PCP - General Internal Medicine 11/26/23 Additional Source Comments The information contained in this document represents components of the legal health record. It is not the complete legal health record.[facility]
--- OUTSIDE RECORDS SUMMARY | 2024-10-31 14:01 | XMS_ITS | Patient Health Record ---
Author Organization [facility] Address [address] [place] [address] Care Team Providers Care Qm Consultant Name Role Phone Braxton PHAM, Simon Primary Care Provider Jose Antonio Pettit [phone] Allergies Allergen (clinical drug ingredient) Drug/Non Drug [...] Problem Status W/U Status Risk Notes Problem 016798305 Abdominal bloating (R14.0) Active confirmed Problem 577052568 Change in bowel function (R19.4) Active confirmed Problem 37346759 Lymphocytic colitis (K52.832) Active confirmed Problem 844722541 Change in bowel function (R19.8) Active confirmed Plan Of Treatment Pending Test Test Name Order Date CRP 06/02/2017 CBC with MANUAL DIFFERENTIAL 06/02/2017 SED RATE (ESR) 06/02/2017 Future Test Test Name Order Date COLONOSCOPY 04/23/2017 Insurance Providers Payer Name Payer Address Payer Phone Subscriber Number Group Number Insured Name Patient Relationship to Insured Coverage Start Date Coverage End Date [facility] [employer] [address] [place] [address] [id number] KENDRA STANLEY Self - patient is the insured Medical (General) History Medical History History ICD Code Asthma--inhaler prn Denies PR,DM,CVA,,renal disease Kidney stones--ESWL Raynaud's--uses Norvasc prn Lymphocytic [...]
--- OUTSIDE RECORDS SUMMARY | 2024-10-31 14:01 | XMS_ITS | Patient Health Record ---
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 Panel Fa st Reviewed date:10/24/2024 09:16:55 AM Interpretation: Performing Lab:[facility], [address] [place] [phone] Notes/Report: Sodium 143 135-145 mmol/L Potassium 3.9 [...] Panel Reviewed date:10/21/2024 04:56:22 PM Interpretation: Performing Lab:[facility], [address] [place] [phone] Notes/Report: Triglycerides 126 <150 mg/dL Desirable Triglyceride: [...] t Reviewed date:10/21/2024 04:56:44 PM Interpretation: Performing Lab:[facility], [address] [place] [phone] Notes/Report: Urine, Clean Catch Color Urine Dark Yellow Appearance Urine Cloudy PH 5.5 5.0-9.0 Glucose Urine UA Negative Negative mg/dL Urine Blood Negative Negative Specific [place] - Urine 1.025 1.005-1.025 Urine Protein Trace Neg-Trace mg/dL Urine Ketones Trace Negative mg/dL Nitrite Urine Negative Negative Leukocyte Esterase Urine Moderate (2+) Negative RBC Urine 0-2 0-2 /HPF WBC Urine >50 0-5 /HPF Squamous Epithelial Cell Urine >20 0-2 /HPF Bacteria Urine 2+ None Seen Hyaline Casts Urine 3-5 0-2 /LPF Calcium (Not yet reviewed by provider) Interpretation: Performing Lab:[facility], [address] [place] [phone] Notes/Report: Calcium 10.3 8.4-10.2 mg/dL Occult Blood, Stool, Guaiac Reviewed date:10/31/2024 11:17:30 AM Interpretation:Negative Performing Lab: Notes/Report: Negative Occult Blood, Stool, Guaiac Neg Urine Culture Reviewed date:10/22/2024 04:58:53 PM Interpretation: Performing Lab:[facility], [address] [place] [phone] Notes/Report: Urine Culture Report Result Urine Culture 50,000 to 100,000 cfu/ml Urine Culture Mixed bacterial val a characteristic of Urine Culture urogenital contamination. Reason For Referral Reason Shortness of breath Diagnosis 1 Shortness of breath (R06.02) Referral Organization Simon Limon MD Referring Provider First Name Simon Referring Provider Last Name Braxton Referring Provider Speciality Internal M edicine Referred Provider FENG FARRIS Referred Provider Specialty Pulmonary Di seases Referral Priority Routine Medications Medication SIG (Take, Route, Frequency, Duration) [...] a day for 90 days Not-Taki ng Immunizations Vaccine Route Administration Date Status Comme nts Flu Vaccine Unknown 12/26/2015 Administered [facility] Fluarix Quadrivalent IM Intramuscular 01/26/2017 Administe pio [facility] [place]. Fluarix Quadrivalent Unknown 01/13/2019 Administered At work Fluarix Quadrivalent Unknown 01/01/2020 Administered [facility] SARS-COV-2 Moderna Unknown 07/04/2020 Administered SARS-COV-2 Moderna [...] Problem Status W/U Status Risk Notes Problem Hypercalcemia (48668210) Hypercalcemia (E83.52) Active confirmed Problem 60191296 Lumbar disc disease (M51.9) Active confirmed Problem 646185857 Mild intermittent asthma without complication (J45.20) Active confirmed Problem 5775646 Migraine with aura and without status migrainosus, not intractable (G43.109) Active confirmed Problem 856042086 Raynauds disease without gangrene (I73.00) Active confirmed Problem 703966601166632 Carpal tunnel syndrome of right wrist (G56.01) Active confirmed Problem Food allergy (Z91.018) Active confirmed Problem 146689331 Recurrent sinus infections (J32.9) Active confirmed Problem 968439428 Other microscopic colitis (K52.838) Active confirmed Vital Signs Blood pressure diastolic 50 mm Hg 10/31/2024 Height 64 in 10/31/2024 Blood pressure systolic 112 mm Hg 10/31/2024 Weight 114 lbs 10/31/2024 BMI 19.57 kg/m2 10/31/2024 Encounters Encounter Location Date Provider Diagnosis Simon Limon MD [address] [place] [address] Drive [address] [place] [id number] 04/01/2024 Simon Limon Acute maxillary sinusitis, recurrence not specified J01.00 Simon Limon MD [address] [place] [address] Drive [address] [place] [id number] 10/21/2024 iSmon Limon Blood tests for routine general physical examination Z00.00 Simon Limon MD [address] [place] [address] Drive [address] [place] [id number] 10/31/2024 Simon Limon Hypercalcemia E83.52 ; Annual physical exam Z00.00 ; Shortness of breath R06.02 and Colon cancer screening Z12.11 Simon Limon MD [address] [place] [id number] 03/21/2024 Simon Limon MD [address] [place] [address] [id number] 06/22/2024 Simon Limon MD [address] [place] [id number] 06/23/2024 Simon Limon MD [address] [place] [address] [id number] 07/04/2024 Simon Limon MD [address] [place] [id number] 07/04/2024 Simon Limon MD [address] [place] [address] [id number] 08/09/2024 Simon Limon Assessments Encounter Date Diagnosis (ICD Code) Assessment Notes Treatment Notes Treatment Clinical Notes Section Notes 04/01/2024 Acute maxillary sinusitis, recurrence not specified (ICD-10 - J01.00) patient verbalized understandingofmedication and directions for use 10/21/2024 Blood tests for routine general physical examination (ICD-10 - Z00.00) 10/31/2024 Hypercalcemia (ICD-10 - E83.52) pending lab, will contine t monitor 10/31/2024 Annual physical exam (ICD-10 - Z00.00) labs reviewed and discussed with patient 10/31/2024 Shortness of breath (ICD-10 - R06.02) needs referral to pulmonary and notes from cardiology this spring / Cardiology note will be scanned in chart 10/31/2024 Colon cancer screening (ICD-10 - Z12.11) guaiac negative Plan Of Treatment Pending Test Test Name Order Date Electrocardiogram (EKG) 09/12/2016 Calcium 10/31/2024 Next Appt Details Provider Name:Simon tavarez, 05/04/2025 10:00:00 AM, [address], Suite [facility], [place], [place], [id number], Provider Name:Simon tavarez, 10/26/2025 07:30:00 AM, [address], [address], [place], [place], [phone], Provider Name:Simon tavarez, 11/02/2025 08:30:00 AM, [address] [facility], [address], [place], [place], [phone], Insurance Providers Payer Name Payer Address Payer Phone Subscriber Number Group Number Insured Name Patient Relationship to Insured Coverage Start Date Coverage End Date [facility] [address] [place], [place] [id number] Vanesa Stanley Self - patient is the insured Medical (General) History Medical History History ICD Code no need for further A1C Colonoscopy 06/02/[address] Campbell
== END 2024-10-31 13:07 | disposition home or self-care (01) ==
LOC: HO.LNP 13:06
PROVIDERS: Visit Provider Internal Medicine
DX: E83.52 Hypercalcemia (principal)
CPT/HCPCS: 82310

== ENCOUNTER 2024-12-22 11:00 | Outpatient (REF) | payer OTHER, SELFPAY ==
[2024-12-22 11:56] LABS: Calcium 10.2 mg/dL (8.4-10.2)
== END 2024-12-22 11:01 | disposition home or self-care (01) ==
LOC: HO.LNP 11:00
PROVIDERS: Visit Provider Internal Medicine
DX: E83.52 Hypercalcemia (principal)
CPT/HCPCS: 82310

== ENCOUNTER 2025-01-16 11:04 | Outpatient (AMB) | payer OTHER, SELFPAY ==
--- OUTSIDE RECORDS SUMMARY | 2024-03-21 06:51 | XMS_ITS ---
Author Organization Simon Limon MD Address [address] [place] [phone] Care Team Providers Care Chief Nurse Name Role Phone Simon Limon Primary Care Provider REASON FOR VISIT REFERRAL FOR DR BISHOP Encounters Encounter Location Date Provider Diagnosis Simon Limon MD [address] [place] [phone] 03/21/2024 Simon Limon Plan Of Treatment Next Appt Details Provider Name:Simon tavarez, 05/04/2025 10:00:00 AM, [address] [place] [address], [address] [place] [address], [phone], Provider Name:Simon tavarez, 10/26/2025 07:30:00 AM, [address] [place] [address], [address] [place] [address], [phone], Provider Name:Simon tavarez, 11/02/2025 08:30:00 AM, [address] [place] [address], [address], [phone], Progress Notes * MIKEL Vanesa ADOB:1970 (53 yo F)Acc No.[id number]:03/21/2024 Patient: Vanesa BAEZA :1970 A ge:53 Y S ex:Female Address:[address] [place] [address], [place] [address] * true * Date: Generated for Tierra hartley/Fidel/eTransmitting on: 03/18/2024 02:02 PM EST
--- OUTSIDE RECORDS SUMMARY | 2024-04-01 06:00 | XMS_ITS ---
Author Organization Simon Limon MD Address [address] [place] [phone] Care Team Providers Care Seamstress Fitter Name Role Phone Simon Limon Primary Care Provider Allergies No Known Allergies REASON FOR VISIT sinus since 03-09-24 c/o head congestion sinus pain nonproductive cough, Video [phone] Medications Medication SIG (Take, Route, Frequency, Duration) Notes Start Date End Date Status Ibuprofen 800 MG 1 tablet Orally Thre e times a day for 90 days Not-Tina hartley ProAir HFA 108 (90 Base) MCG/ACT 2 puffs as needed Inhalation every 4 hrs 08/28/2015 Not-Roslyn barrera Flonase 50 MCG/ACT 1 spray in each nost ril Nasally Once a day for 30 day(s) 04/07/2017 Not-Taking Amoxicillin-Pot Clavulanate 875-125 MG 1 tablet Orally every 12 hrs for 10 days 04/01/2024 Active Dicyclomine HCl 10 MG 2 capsules Orally Four times a day for 30 day(s) Not-Taking Vital Signs Height 64 in 04/01/2024 Weight 115 lbs 04/01/2024 BMI 19.74 kg/m2 04/01/2024 weight is 115 BP not taken n o temp Encounters Encounter Location Date Provider Diagnosis Simon Limon MD [address] [place] [address] [phone] 04/01/2024 Simon Limon Acute maxillary sinusitis, recurrence not specified J01.00 Assessments Encounter Date Diagnosis (ICD Code) Assessment Notes Treatment Notes Treatment Clinical Notes Section Notes 04/01/2024 Acute maxillary sinusitis, recurrence not specified (ICD-10 - J01.00) patient verbalized understandingofmedication and directions for use Plan Of Treatment Medication Medication Name Sig Start Date Stop Date Notes Amoxicillin-Pot Clavulanate 875-125 MG 1 tablet Orally every 12 hrs for 10 days 04/01/2024 Treatment Notes Assessment Notes Acute maxillary sinusitis, recurrence not specified patient verbalized understandingofmedica tion and directions for use Next Appt Details Provider Name:Simon tavarez, 05/04/2025 10:00:00 AM, [address] [place] [address], [address], [phone], Provider Name:Simon tavarez, 10/26/2025 07:30:00 AM, [address] [place] [address], [phone], Provider Name:Simon tavarez, 11/02/2025 08:30:00 AM, [address] [place] [address], [phone], Progress Notes * Vanesa STANLEY ADOB:1970 (54 yo F)Acc No.[id number]:04/01/2024 Patient: Vanesa BAEZA Provider: Ugo Limon MD :1970 A ge:53 Y S ex:Female Date:04/01/2024 Address:[address] [place] [address] Subjective: * Chief Complaints: * 1 . Sinus since 12-24 c/o head congestion sinus pain nonproductive cough. 2. Video [phone]. * HPI: S ymptom(s): Telehealth L ocation of provider rendering services: [address], [address], L ocation of patient: a t address listed in demographics for today's visit, P atcarina identification confirmed using: KATHYA Ram ame, T elehealth method: T elephone only. Patient not visible to care provider., C onsent: P atient verbally consented to treatment, Patient verbally consented to billing insurance company, Patient informed of any privacy concerns related to method of visit, T otal time spend talking with patient (minutes) 0 . patient is a 53 yo female video telehealth visit, here as emergency with complaint of head congestion, sinus pain and nonprod cough. bronchitis treatment. steroid and inhale and cough medicine. * ROS: G eneral/Constitutional: Denies C hills. D enies F atigue. D enies F ever. A dmits H eadache, s inus headache. E NT: Patient denies d ecreased sense of smell , any loss of taste , sore throat. A dmits E ar pain. D enies S ore throat. R espiratory: Admits C ough. A dmits S putum production. ? G astrointestinal: Denies D iarrhea. D enies N ausea. M usculoskeletal: Patient denies m uscle aches. P eripheral Vascular: Patient denies r ed and blue toes. * Medical History: n o need for further A1C, Colonoscopy 06/02/[address] Campbell. * Medications: N ot-Taking/PRN ProAir HFA 108 (90 Base) MCG/ACT Aerosol Solution 2 puffs as needed Inhalation every 4 hrs , Not-Taking/PRN Ibuprofen 800 MG Tablet 1 tablet Orally Three times a day , Not-Taking/PRN Flonase 50 MCG/ACT Suspension 1 spray in each nostril Nasally Once a day , Not-Taking/PRN Dicyclomine HCl 10 MG Capsule 2 capsules Orally Four times a day , Discontinued 04/04 1-20 MG-MCG Tablet TAKE 1 TABLET BY MOUTH EVERY DAY Oral , Medication List reviewed and reconciled with the patient * Allergies: N .K.D.A. Objective: * Vitals: H t: 64, Wt: 115, BMI:19.74, Wt-k.16. weight is 115 BP not taken no temp. * Examination: G eneral Examination: GENERAL APPEARANCE: a lert, well hydrated, in no distress.? Assessment: * Assessment: 1. A cute maxillary sinusitis, recurrence not specified - J01.00 (Primary) Plan: * Treatment: * * The named appointment provid er may or may not be the originator of this progress note, and it is not deemed complete until electronically signed by the appointment provider. Sign off status: Pending * Provider: Ugo Limon MD Date: 0 04/01/2024 Generated for Tierra hartley/Fidel/Marenitting on: 1 03/18/2024 02:01 PM EST History and Physical Notes * HPI (History of Present Illness) Category Sub-Category Detail Notes Category Not es Symptom(s) Telehealth Location of [facility] rendering services:: [address], [address] patient is a 53 yo female video telehealth visit, here as emergency with complaint of head congestion, sinus pain and nonprod cough. bronchitis treatment. steroid and inhale and cough medicine. Location of patient:: at address listed in demographics for today's visit Patient identification confirmed using:: Name, Telehealth method:: Telephone only. Ada ent not visible to care provider. Consent:: Patient verbally c onsented to treatment, Patient verbally consented to billing insurance company, Patient informed of any privacy concerns related to method of visit Total time spend talking with patient (m inutes): 0 Examination Category Sub-Category Detail Notes Category Not es General Examination GENERAL APPEARANCE: alert, w ell hydrated, in no distress
--- OUTSIDE RECORDS SUMMARY | 2024-06-22 07:18 | XMS_ITS ---
Author Organization Simon Limon MD Address [address] [place] [phone] Care Team Providers Care School Boat Driver Name Role Phone Simon Limon Primary Care Provider REASON FOR VISIT New Referral Request Encounters Encounter Location Date Provider Diagnosis Simon Limon MD 10 [facility] [address] [place] [phone] 06/22/2024 iSmon Limon Plan Of Treatment Next Appt Details Provider Name:Simon tavarez, 05/04/2025 10:00:00 AM, [address] [place] [address], [address], [phone], Provider Name:Simon tavarez, 10/26/2025 07:30:00 AM, [address] [place] [address], [address], [phone], Provider Name:Simon tavarez, 11/02/2025 08:30:00 AM, [address] [place] [address], [address], [phone], Progress Notes * Vanesa STANLEY ADOB:1970 (54 yo F)Acc No.[id number]:06/22/2024 Patient: Vanesa BAEZA :1970 A ge:54 Y S ex:Female Address:[address] [place] [address], [place] [address] * true * Date: Generated for Tierra hartley/Fidel/eTransmitting on: 03/18/2024 02:02 PM EST
--- OUTSIDE RECORDS SUMMARY | 2024-06-23 06:42 | XMS_ITS ---
Author Organization Simon Limon MD Address [address] [place] [phone] Care Team Providers Care Trucking Supervisor Name Role Phone Simon Limon Primary Care Provider REASON FOR VISIT New Referral Request Encounters Encounter Location Date Provider Diagnosis Simon Limon MD 10 [facility] [address] [place] [phone] 06/23/2024 Simon Limon Plan Of Treatment Next Appt Details Provider Name:Simon tavarez, 05/04/2025 10:00:00 AM, [address] [place] [address], [address], [phone], Provider Name:Simon tavarez, 10/26/2025 07:30:00 AM, [address] [place] [address], [address], [phone], Provider Name:Simon tavarez, 11/02/2025 08:30:00 AM, [address] [place] [address], [address], [phone], Progress Notes * Vanesa STANLEY ADOB:1970 (54 yo F)Acc No.[id number]:06/23/2024 Patient: Vanesa BAEZA :1970 A ge:54 Y S ex:Female Address:[address] [place] [address], [place] [address] * true * Date: Generated for Tierra hartley/Fidel/eTransmitting on: 03/18/2024 02:01 PM EST
--- OUTSIDE RECORDS SUMMARY | 2024-07-04 06:18 | XMS_ITS ---
Author Organization Simon Limon MD Address [address] [place] [phone] Care Team Providers Care Floor Cleaner Name Role Phone Simon Limon Primary Care Provider [phone] REASON FOR VISIT New Referral Request Encounters Encounter Location Date Provider Diagnosis Simon Limon MD 10 [facility] [address] [place] [phone] 07/04/2024 Simon Limon Plan Of Treatment Next Appt Details Provider Name:Simon tavarez, 05/04/2025 10:00:00 AM, [address] [place] [address], [address], [phone], Provider Name:Simon tavarez, 10/26/2025 07:30:00 AM, [address] [place] [address], [address], [phone], Provider Name:Simon tavarez, 11/02/2025 08:30:00 AM, [address] [place] [address], [address], [phone], Progress Notes * Vanesa STANLEY ADOB:1970 (54 yo F)Acc No.[id number]:07/04/2024 Patient: Vanesa BAEZA :1970 A ge:54 Y S ex:Female Address:[address] [place] [address], [place] [address] * true * Date: Generated for Tierra hartley/Fidel/eTransmitting on: 03/18/2024 02:01 PM EST
--- OUTSIDE RECORDS SUMMARY | 2024-07-04 10:27 | XMS_ITS ---
Author Organization Simon Limon MD Address [address] [place] [phone] Care Team Providers Care Raking Machine Operator Name Role Phone Simon Limon Primary Care Provider REASON FOR VISIT New Referral Request Encounters Encounter Location Date Provider Diagnosis Simon Limon MD 10 [facility] [address] [place] [phone] 07/04/2024 Simon Limon Plan Of Treatment Next Appt Details Provider Name:Simon tavarez, 05/04/2025 10:00:00 AM, [address] [place] [address], [address], [phone], Provider Name:Simon tavarez, 10/26/2025 07:30:00 AM, [address] [place] [address], [address], [phone], Provider Name:Simon tavarez, 11/02/2025 08:30:00 AM, [address] [place] [address], [address], [phone], Progress Notes * Vanesa STANLEY ADOB:1970 (54 yo F)Acc No.[id number]:07/04/2024 Patient: Vanesa BAEZA :1970 A ge:54 Y S ex:Female Address:[address] [place] [address], [place] [address] * true * Date: Generated for Tierra hartley/Fidel/eTransmitting on: 03/18/2024 02:01 PM EST
--- OUTSIDE RECORDS SUMMARY | 2024-08-09 11:45 | XMS_ITS ---
Author Organization Simon Limon MD Address [address] [place] [address] [phone] Care Team Providers Care Tribal Judge Name Role Phone Simon Limon Primary Care Provider [phone] REASON FOR VISIT Sinus issue real painful Encounters Encounter Location Date Provider Diagnosis Simon Limon MD 10 [facility] [address] [place] [address] [phone] 08/09/2024 Simon Limon Plan Of Treatment Next Appt Details Provider Name:Simon tavarez, 05/04/2025 10:00:00 AM, [address] [place] [address], [address] [place] [address], [phone], Provider Name:Simon tavarez, 10/26/2025 07:30:00 AM, [address] [place] [address], [address], [phone], Provider Name:Simon tavarez, 11/02/2025 08:30:00 AM, [address] [place] [address], [address], [phone], Progress Notes * Vanesa STANLEY ADOB:1970 (54 yo F)Acc No.[id number]:08/09/2024 Patient: Vanesa BAEZA :1970 A ge:54 Y S ex:Female Address:[address] [place] [address], [place] [address] * true * Date: Generated for Tierra hartley/Fidel/eTransmitting on: 03/18/2024 02:01 PM EST
--- OUTSIDE RECORDS SUMMARY | 2024-10-21 02:15 | XMS_ITS ---
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 Role Phone Simon Limon Primary Care Provider Results Component Value Reference Range Notes Complete Blood Count Auto Di ff Reviewed date:10/21/2024 04:57:18 PM Interpretation: Performing Lab:[facility], [address] [place] [phone] Notes/Report: White Blood Count 5.5 4.8-10.8 X10*3/uL Red Blood Count 4.60 4.20-5.50 X10*6/uL Hemoglobin 14.4 12.0-16.0 g/dl Hematocrit 43.1 37.0-47.0 % Mean Corpuscular Volume 93.7 80.0-98.0 fL Mean Corpuscular Hemoglobin 31.3 27.0-33.0 pg Mean Corpuscular HGB Conc 33.4 31.0-35.0 g/dl Red Cell Distribution Width 11.9 11.0-16.0 % Platelet Count 264 160-400 X10*3/uL Mean Platelet Volume 10.5 9.4-12.3 fL Neutrophils Percent Auto 49.8 45-73 % Imm Gran Pct Auto 0.2 0.0-0.4 % Lymphocytes Percent Auto 32.1 20-40 % Monocytes Percent Auto 8.5 2-11 % Eosinophils Percent Auto 8.7 0-4 % Basophils Percent Auto 0.7 0-2 % NRBC Pct Auto 0.0 0.0-0.2 /100WBC Neutrophils Absolute Auto 2.8 2.0-8.3 x10*3/u L Imm Gran Abs Auto 0.01 0.00-0.03 X10*3/uL Lymphocytes Absolute Auto 1.8 1.2-4.9 X10*3/u L Monocytes Absolute Auto 0.5 0.1-1.2 X10*3/uL Eosinophils Absolute Auto 0.5 0.0-0.4 X10*3/u L Basophils Absolute Auto 0.0 0.0-0.2 X10*3/uL NRBC Abs Auto 0.000 0.0-0.012 X10*3/uL Comprehensive [place]. Panel Fa st Reviewed date:10/24/2024 09:16:55 AM Interpretation: Performing Lab:[facility], [address] [place] [phone] Notes/Report: Sodium 143 135-145 mmol/L Potassium 3.9 3.3-5.1 mmol/L Chloride 104 96-108 mmol/L Carbon Dioxide 29 22-29 mmol/L Anion Gap 14 12-20 Blood Urea Nitrogen 13 9-16 mg/dL Creatinine 0.76 0.5-1.4 mg/dL Estimated Glomerular Filt Rate > 60 Chronic Kidney Disease: Estimated GFR < 60 mL/min/1.73m2 Severe Kidney Disease: Estimated GFR < 15 mL/min/1.73m2 Glucose Fasting 102 60-99 mg/dL A fasting glucose from 100-125 mg/dl is considered impaired (pre-diabetes). Calcium 10.6 8.4-10.2 mg/dL Bilirubin Total 0.6 0.0-1.0 mg/dL Aspartate Amino Transferase 30 5-31 U/L Alanine Aminotransferase 25 0-31 U/L Total Protein 7.7 6.5-8.0 g/dL Albumin Level 5.0 3.5-5.0 g/dL Alkaline Phosphatase 75 39-117 U/L Lipid Panel Reviewed date:10/21/2024 04:56:22 PM Interpretation: Performing Lab:[facility], [address] [place] [id number] Notes/Report: Triglycerides 126 <150 mg/dL Desirable Triglyceride: less than 150 mg/dL Borderline High Triglyceride 150-199 mg/dL High Triglyceride: 200-499 mg/dL Very High Triglyceride: greater than or equal to 5OO mg/dL Cholesterol 218 <200 mg/dL Desirable Cholesterol: less than 200 mg/dL Borderline High Cholesterol: 200-239 mg/dL High Cholesterol: greater than 239 mg/dL LDL Cholesterol Calculated 114 <100 mg/dL Desirable LDL: less than 100 mg/dL Near Optimal/Above Optimal LDL: 110-129 mg/dL Borderline High LDL: 130-159 mg/dL High LDL: 160-189 mg/dL Very High LDL: greater than or equal to 190 mg/dL HDL Cholesterol 79 >40 mg/dL Desirable HDL: greater than 40 mg/dL Note: This HDL assay may give artificially low results in patients with liver disease. UA ClnCatch+Micro w/rflx Cul t Reviewed date:10/21/2024 04:56:44 PM Interpretation: Performing Lab:[facility], [address] [place] [phone] Notes/Report: Urine, Clean Catch Color Urine Dark Yellow Appearance Urine Cloudy PH 5.5 5.0-9.0 Glucose Urine UA Negative Negative mg/dL Urine Blood Negative Negative Specific [place] - Urine 1.025 1.005-1.025 Urine Protein Trace Neg-Trace mg/dL Urine Ketones Trace Negative mg/dL Nitrite Urine Negative Negative Leukocyte Esterase Urine Moderate (2+) Negative RBC Urine 0-2 0-2 /HPF WBC Urine >50 0-5 /HPF Squamous Epithelial Cell Urine >20 0-2 /HPF Bacteria Urine 2+ None Seen Hyaline Casts Urine 3-5 0-2 /LPF REASON FOR VISIT yearly fasting labs Encounters Encounter Location Date Provider Diagnosis Simon Limon MD [address] [place], [place] [phone] 10/21/2024 Simon Limon Blood tests for routine general physical examination Z00.00 Assessments Encounter Date Diagnosis (ICD Code) Assessment Notes Treatment Notes Treatment Clinical Notes Section Notes 10/21/2024 Blood tests for routine general physical examination (ICD-10 - Z00.00) Plan Of Treatment Next Appt Details Provider Name:Simon Morris corby, 05/04/2025 10:00:00 AM, [address] [facility], [address] [facility], [place], [place], [phone], Provider Name:Simon Morris arielr, 10/26/2025 07:30:00 AM, [address] [place] [address], Suite [facility], [place], [place], [phone], Provider Name:Simno Morris arielr, 11/02/2025 08:30:00 AM, [address] [place] [address], [address] [facility], [place], [place], [phone], Progress Notes * Vanesa STANLEY ADOB:1970 (54 yo F)Acc No.[id number]:10/21/2024 Progress Note Patient: Vanesa BAEZA Provider: Ugo Limon MD :1970 A ge:54 Y S ex:Female Date:10/21/2024 Address:[address] [place] [address], [id number] Subjective: * Chief Complaints: * 1 . Yearly fasting labs. * Medical History: Objective: * Vitals: Assessment: * Assessment: 1. B lood tests for routine general physical examination - Z00.00 (Primary) Plan: * Treatment: * Procedure Codes: 3 6415 VENIPUNCT, ROUTINE* * * The named appointment provid er may or may not be the originator of this progress note, and it is not deemed complete until electronically signed by the appointment provider. Sign off status: Pending * Provider: Ugo Limon MD Date: 0 10/21/2024 Generated for Tierra hartley/Fidel/Marenitting on: 03/18/2024 02:02 PM EST
--- OUTSIDE RECORDS SUMMARY | 2024-10-31 05:30 | XMS_ITS ---
Author Organization Simon Limon MD Address [address] [place] [id number] Care Team Providers Care Manager Finance Name Role Phone BraxtonSimon Primary Care Provider Allergies No Known Allergies Results Component Value Reference Range Notes Calcium Reviewed date:11/01/2024 09:53:35 AM Interpretation: Performing Lab:[facility], [address] [place] [id number] Notes/Report: Calcium 10.3 8.4-10.2 mg/dL Reason For Referral Reason Shortness of breath Diagnosis 1 Shortness of breath (R06.02) Referral Organization Simon Limon MD Referring Provider First Name Simon Referring Provider Last Name Braxton Referring Provider Speciality Internal M edicine Referred Provider FENG FARRIS Referred Provider Specialty Pulmonary Di seases General Notes Harper Crowder 0 11/11/2024 02:12:20 PM > info faxed, Harper Crowder 12/02/2024 10:31:23 AM > referral info mailed to patient Referral Priority Routine Referral Appointment Date 01/16/2025 REASON FOR VISIT annual visit, Repeat Calcium Medications Medication SIG (Take, Route, Frequency, Duration) Notes Start Date End Date Status Amoxicillin-Pot Clavulanate 875-125 MG 1 tablet Orally every 12 hrs for 10 days 04/01/2024 Active Flonase 50 MCG/ACT 1 spray in each nost ril Nasally Once a day for 30 day(s) 04/07/2017 Not-Taking Dicyclomine HCl 10 MG 2 capsules Orally Four times a day for 30 day(s) Not-Taking ProAir HFA 108 (90 Base) MCG/ACT 2 puffs as needed Inhalation every 4 hrs 08/28/2015 Not-Takin g Ibuprofen 800 MG 1 tablet Orally Thre e times a day for 90 days Not-Tina hartley Social History Tobacco Use: Social History Observation [...] Interpretation Negative Vital Signs Blood pressure systolic 112 mm Hg 11/01/19 25 Blood pressure diastolic 50 mm Hg 025 Height 64 in 10/31/2024 Weight 114 lbs 10/31/2024 BMI 19.57 kg/m2 10/31/2024 Encounters Encounter Location Date Provider Diagnosis Simon Limon MD [address] [place], [place] [id number] 10/31/2024 Simon Limon Hypercalcemia E83.52 ; Annual physical exam Z00.00 and Shortness of breath R06.02 Assessments Encounter Date Diagnosis (ICD Code) Assessment Notes Treatment Notes Treatment Clinical Notes Section Notes 10/31/2024 Hypercalcemia (ICD-10 - E83.52) pending lab, will contine t monitor 10/31/2024 Annual physical exam (ICD-10 - Z00.00) labs reviewed and discussed with patient 10/31/2024 Shortness of breath (ICD-10 - R06.02) needs referral to pulmonary and notes from cardiology this spring / Cardiology note will be scanned in chart 10/31/2024 Other Plan Of Treatment Treatment Notes Assessment Notes Hypercalcemia pending lab, will co ntine t monitor Annual physical exam labs reviewed and d iscussed with patient Shortness of breath needs referral to lmonary and notes from cardiology this spring Cardiology note will be scanned in chart Referrals Referral Date Details 10/31/2024 10/31/2024, Shortnes s of breath, FENG FARRIS Next Appt Details Follow Up: 6 Months, Reason: Provider Name:Simon tavarez, 05/04/2025 10:00:00 AM, [address] [place] [address], [address], [phone], Provider Name:Simon tavarez, 10/26/2025 07:30:00 AM, [address] [place] [address], Suite [facility], [place], [phone], Provider Name:Simon tavarez, 11/02/2025 08:30:00 AM, [address] [place] [address], [place] [address], [place], [place], [phone], Progress Notes * Vanesa STANLEY ADOB:1970 (54 yo F)Acc No.[id number]:10/31/2024 Progress Notes Patient: Vanesa BAEZA Yovani Provider: Ugo Limon MD :1970 A ge:54 Y S ex:Female Date:10/31/2024 Address:[address] [place] [address], [facility] Subjective: * Chief Complaints: * A nnual visitRepeat Calcium * HPI: D epression Screening: PHQ-9 L ittle interest or pleasure in doing things N ot at all, F eeling down, depressed, or hopeless N ot at all, T rouble falling or staying asleep, or sleeping too much N ot at all, F eeling tired or having little energy N ot at all, P oor appetite or overeating N ot at all, F eeling bad about yourself or that you are a failure, or have let yourself or your family down N ot at all, T rouble concentrating on things, such as reading the newspaper or watching television N ot at all, M oving or speaking so slowly that other people could have noticed; or the opposite, being so fidgety or restless that you have been moving around a lot more than usual N ot at all, T houghts that you would be better off or of hurting yourself in some way N ot at all, T otal Score 0 . I nterpretation and Intervention D epression Screening Findings N egative, F ollow-Up for Depression : review of PHQ-9 found negative result, no follow-up needed. C ommunication Needs: Communication Needs D oes the patient have a hearing impairment N o, D oes the patient have a vision impairment? Y es, I f yes, what is the vision impairment? G lasses, D oes the patient have a cognition impairment? N o. S COLTEN Questions: SDOH Questions I n the past year have you been worried about losing housing? N o, I n the past year have you or any family members you live with been unable to get any of the following when it was really needed? Check all that apply: N one. S ymptom(s): patient is a 54 yo female here for annual visit with reciew of recent labs and follow up of chronic issues h ere for yearly evaluation. still with shortness of breath. * ROS: G eneral/Constitutional: Change in appetite d enies. C hills d enies. F ever d enies. O phthalmologic: Blurred vision d enies. D ischarge d enies. P ain d enies. E NT: Decreased hearing d enies. S ore throat d enies.?Swollen glands d enies. E ndocrine: Cold intolerance d enies. E xcessive thirst d enies. H eat intolerance d enies. W eight loss d enies. R espiratory: Cough d enies. S hortness of breath at rest d enies. S hortness of breath with exertion d enies. W heezing d enies. C ardiovascular: Chest pain at rest d enies. C hest pain with exertion?denies. I rregular heartbeat d enies. S hortness of breath d enies. ? G astrointestinal: Abdominal pain d enies. C hange in bowel habits d enies. D iarrhea d enies. N ausea d enies. R ectal bleeding d enies. V omiting d enies . G enitourinary: Blood in urine d enies. D ifficulty urinating d enies. F requent urination d enies. U rinary incontinence D enies. M usculoskeletal: Painful joints d enies. W eakness d enies. ? S kin: Dry skin d enies. I tching d enies. D enies?Mole(s), changes in moles, new moles or any lesions of concern. D enies P hotosensitivity. R franky d enies. N eurologic: Dizziness d enies. F ainting d enies. H eadache?denies. * Medical History: * Surgical History: * Hospitalization/Major Diagno stic Procedure: * Family History: F ather: 69 yrs, diagnosed with Cancer. M other: alive 83 yrs. 1 brother(s) , 2 sister(s) . 1 son(s) , 1 daughter(s) . . Denies mental health/substance abuse family history Mother healthy Father Prostate caner, Denies mental health/substance abuse family history, No pertinent family medical history, Denies mental health/substance abuse family history. * Social History: T obacco Use: T obacco Use/Smoking P atient is a f ormer smoker, H ow long has it been since you last smoked? > 10 years, A dditional Findings: Tobacco Non-User F ormer smoker, currently using no form of tobacco. D rugs/Alcohol: A lcohol Screen D id you have a drink containing alcohol in the past year? Y es, H ow often did you have a drink containing alcohol in the past year? 2 to 4 times a month (2 points), H ow many drinks did you have on a typical day when you were drinking in the past year? 1 or 2 drinks (0 point), H ow often did you have 6 or more drinks on one occasion in the past year? N ever (0 point), P oints 2 , I nterpretation N egative. M iscellaneous: C affeine: yes, 1-2 cups per day. Children: yes. Community involvements: yes. Exercise: yes, 3-4 times per week walking 3-4 miles. Housing: owning. Living with: spouse. Marital status: . 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 Pets: dog. * Medications: T akingAmoxicillin-Pot Clavulanate 875-125 MG Tablet 1 tablet Orally every 12 hrs Taking Amoxicillin-Pot Clavulanate 875-125 MG Tablet 1 tablet Orally every 12 hrs Not-Taking/PRNProAir HFA 108 (90 Base) MCG/ACT Aerosol Solution 2 puffs as needed Inhalation every 4 hrs Ibuprofen 800 MG Tablet 1 tablet Orally Three times a day Flonase 50 MCG/ACT Suspension 1 spray in each nostril Nasally Once a day Dicyclomine HCl 10 MG Capsule 2 capsules Orally Four times a day Not-Taking/PRN ProAir HFA 108 (90 Base) MCG/ACT Aerosol Solution 2 puffs as needed Inhalation every 4 hrs Not-Taking/PRN Ibuprofen 800 MG Tablet 1 tablet Orally Three times a day Not-Taking/PRN Flonase 50 MCG/ACT Suspension 1 spray in each nostril Nasally Once a day Not-Taking/PRN Dicyclomine HCl 10 MG Capsule 2 capsules Orally Four times a day * Allergies: N .K.D.A.yes[Allergies Verified] Objective: * Vitals: H t: 64, Wt: 114, BMI:19.57, BP:112/50, Wt-k.71. * P ast Orders: L ab:Urine Culture (Order Date - 10/21/2024) (Collection Date & Time - 10/21/2024) Value Reference Range Urine Culture urogenital contamination. - L ab:Complete Blood Count Auto Diff (Order Date - 10/21/2024) (Collection Date & Time - 10/21/2024 07:15 AM) Value Reference Range White Blood Count 5.5 4.8-10.8 - X10*3/uL Red Blood Count 4.60 4.20-5.50 - X10*6/uL Hemoglobin 14.4 12.0-16.0 - g/dl Hematocrit 43.1 37.0-47.0 - % Mean Corpuscular Volume 93.7 80.0-98.0 - fL Mean Corpuscular Hemoglobin 31.3 27.0-33.0 - pg Mean Corpuscular HGB Conc 33.4 31.0-35.0 - g/ dl Red Cell Distribution Width 11.9 11.0-16.0 - % Platelet Count 264 160-400 - X10*3/uL Mean Platelet Volume 10.5 9.4-12.3 - fL Neutrophils Percent Auto 49.8 45-73 - % Imm Gran Pct Auto 0.2 0.0-0.4 - % Lymphocytes Percent Auto 32.1 20-40 - % Monocytes Percent Auto 8.5 2-11 - % Eosinophils Percent Auto 8.7 H 0-4 - % Basophils Percent Auto 0.7 0-2 - % NRBC Pct Auto 0.0 0.0-0.2 - /100WBC Neutrophils Absolute Auto 2.8 2.0-8.3 - x10* 3/uL Imm Gran Abs Auto 0.01 0.00-0.03 - X10*3/uL Lymphocytes Absolute Auto 1.8 1.2-4.9 - X10* 3/uL Monocytes Absolute Auto 0.5 0.1-1.2 - X10*3/ uL Eosinophils Absolute Auto 0.5 H 0.0-0.4 - X10* 3/uL Basophils Absolute Auto 0.0 0.0-0.2 - X10*3/ uL NRBC Abs Auto 0.000 0.0-0.012 - X10*3/uL L ab:Comprehensive Allen. Panel Fast (Order Date - 10/21/2024) (Collection Date & Time - 10/21/2024 07:15 AM) Value Reference Range Sodium 143 135-145 - mmol/L Bilirubin Total 0.6 0.0-1.0 - mg/dL Aspartate Amino Transferase 30 5-31 - U/L Alanine Aminotransferase 25 0-31 - U/L Total Protein 7.7 6.5-8.0 - g/dL Albumin Level 5.0 3.5-5.0 - g/dL Alkaline Phosphatase 75 39-117 - U/L Potassium 3.9 3.3-5.1 - mmol/L Chloride 104 96-108 - mmol/L Carbon Dioxide 29 22-29 - mmol/L Anion Gap 14 12-20 - Blood Urea Nitrogen 13 9-16 - mg/dL Creatinine 0.76 0.5-1.4 - mg/dL Estimated Glomerular Filt Rate > 60 - Glucose Fasting 102 H 60-99 - mg/dL Calcium 10.6 H 8.4-10.2 - mg/dL L ab:Lipid Panel (Order Date - 10/21/2024) (Collection Date & Time - 10/21/2024 07:15 AM) Value Reference Range Triglycerides 126 <150 - mg/dL Cholesterol 218 H <200 - mg/dL LDL Cholesterol Calculated 114 H <100 - mg/dL HDL Cholesterol 79 >40 - mg/dL L ab:UA ClnCatch+Micro w/rflx Cult (Order Date - 10/21/2024) (Collection Date & Time - 10/21/2024 07:15 AM) Value Reference Range Color Urine Dark Yellow - Appearance Urine Cloudy - PH 5.5 5.0-9.0 - Glucose Urine UA Negative Negative - mg/dL Urine Blood Negative Negative - Specific [place] - Urine 1.025 1.005-1.025 - Urine Protein Trace Neg-Trace - mg/dL Urine Ketones Trace Negative - mg/dL Nitrite Urine Negative Negative - Leukocyte Esterase Urine Moderate (2+) A Negative - RBC Urine 0-2 0-2 - /HPF WBC Urine >50 A 0-5 - /HPF Squamous Epithelial Cell Urine >20 0-2 - /HPF Bacteria Urine 2+ None Seen - Hyaline Casts Urine 3-5 0-2 - /LPF * Examination: G eneral Examination: GENERAL APPEARANCE: w ell developed, well nourished, in no acute distress. HEAD: n ormocephalic, atraumatic. EYES: p upils equal, round, reactive to light and accommodation, sclera non-icteric. EARS: n ormal. ORAL CAVITY: m ucosa moist. THROAT: c lear. NECK/THYROID: n rené supple, full range of motion, no cervical lymphadenopathy, no bruits. SKIN: w arm and dry, no suspicious lesions. HEART: r egular rate and rhythm, S1, S2 normal, no murmurs.? LUNGS: c lear to auscultation bilaterally. BREASTS: d one by fixture designer. ABDOMEN: s oft, nontender, nondistended, bowel sounds present, normal, no organomegaly , no masses palpable. RECTAL EXAM: d one by fixture designer. FEMALE GENITOURINARY: d one by fixture designer. EXTREMITIES: n o clubbing, cyanosis, or edema. NEUROLOGIC: n onfocal, motor strength normal upper and lower extremities, sensory exam intact. Assessment: * Assessment: 1. A nnual physical exam - Z00.00 (Primary) 2 . H ypercalcemia - E83.52? 3. S hortness of breath - R06.02 Plan: * Treatment: 2. H ypercalcemia L AB: Calcium (Collection Date & Time - 10/31/2024 10:30 AM) Notes: pending lab, will contine t monitor 3. S hortness of breath Notes: needs referral to pulmonary and notes from cardiology this spring / Cardiology note will be scanned in chart Referral To:FENG FARRIS Pulmonary Diseases Reason:Shortness of breath * Procedure Codes: 3 6415 VENIPUNCT, ROUTINE* * Follow Up: 6 Months * * Sign off status: Completed true * Provider: Ugo Limon MD Date: 0 10/31/2024 Generated for Tierra hartley/Fidel/Marenitting on: 1 03/18/2024 02:02 PM EST History and Physical Notes * HPI (History of Present Illness) Category Sub-Category Detail Notes Category Not es Symptom(s) patient is a 54 yo female here for annual visit with reciew of recent labs and follow up of chronic issues here for yearly evaluation. still with shortness of breath. Depression Screening PHQ-9 Little inte rest or [...] patient have a vision impairmen t?: Yes If yes, what is the vision impairment?: Glasses Does the patient have a cognition impair ment?: No Examination Category Sub-Category Detail Notes Category Not es General Examination GENERAL APPEARANCE: well dev eloped, well nourished, in no acute distress HEAD: normocephalic, atrau matic EYES: pupils equal, round, reactive to light and accommodation, sclera non-icteric EARS: normal THROAT: clear NECK/THYROID: neck supple, [...] cyanosi s, or edema BREASTS: done by fixture designer RECTAL EXAM: done by fixture designer FEMALE GENITOURINARY: done by fixture designer ORAL CAVITY: mucosa moist Consultation Request Notes Referral Date Referring Provider Referred Provider Not es 10/31/2024 Simon Limon MOHAMMAD Shortnes s of breath
--- OUTSIDE RECORDS SUMMARY | 2024-12-22 03:00 | XMS_ITS ---
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 Automatic Name Role Phone Braxton Simon Primary Care Provider [phone] Results Component Value Reference Range Notes Calcium Reviewed date:12/22/2024 01:44:30 PM Interpretation: Performing Lab:[facility], [address] [place] [phone] Notes/Report: Calcium 10.2 8.4-10.2 mg/dL REASON FOR VISIT Repeat calcium Immunizations Vaccine Route Administration Date Status Comme nts Fluarix Quadrivalent - 150 IM Intramuscular 12/22/2024 Adm inistered Encounters Encounter Location Date Provider Diagnosis Simon Limon MD [address] [place] [id number] 12/22/2024 Simon Limon Hypercalcemia E83.52 and Encounter for administration of vaccine Z23 Assessments Encounter Date Diagnosis (ICD Code) Assessment Notes Treatment Notes Treatment Clinical Notes Section Notes 12/22/2024 Hypercalcemia (ICD-10 - E83.52) 12/22/2024 Encounter for administration of vaccine (ICD-10 - Z23) Plan Of Treatment Next Appt Details Provider Name:Simon Morris ier, 05/04/2025 10:00:00 AM, [address], [address], [place], [place], [phone], Provider Name:Simon Morris ier, 10/26/2025 07:30:00 AM, [address], [address], [place], [place], [phone], Provider Name:Simon Morris ier, 11/02/2025 08:30:00 AM, [address], [address], [place], [place], [phone], Progress Notes * Vanesa STANLEY ADOB:1970 (54 yo F)Acc No.[id number]:12/22/2024 Progress Note Patient: Vanesa BAEZA Provider: Ugo Limon MD :1970 A ge:54 Y S ex:Female Date:12/22/2024 Address:[address] [place] [address], [facility] Subjective: * Chief Complaints: * 1 . Repeat calcium. * Medical History: Objective: * Vitals: Assessment: * Assessment: 1. E ncounter for administration of vaccine - Z23 (Primary) 2 . H ypercalcemia - E83.52 Plan: * Treatment: * Immunizations: Fluarix Quadrivalent - 150 : 0.5 mL (Dose No:1) (Route: Intramuscular) given by Olivia Diaz , Office Staff on Left Deltoid * Procedure Codes: 3 6415 VENIPUNCT, ROUTINE*, 58547 FLU VACCINE NO PRESERV 3 & >, 56283 IMMUNIZATION ADMIN * * The named appointment provid er may or may not be the originator of this progress note, and it is not deemed complete until electronically signed by the appointment provider. Sign off status: Pending * Provider: Ugo Limon MD Date: 1 Generated for Tierra hartley/Fidel/eTmadhusmitting on: 03/18/2024 02:02 PM EST
--- NOTE | 2025-01-16 11:13 | MHC.OFFVIS ---
Vital Signs 01/16/25 11:14 Height 5 ft 3 in Weight 119 lb 0.794 oz BMI 21.1 BP 110/70 Blood Pressure Location Lt brachial Position Sitting Pulse 84 Pulse Source Pulse Oximeter Pulse Oximetry (%) 100 Oxygen Delivery Method Room Air Intake Visit Reasons: Shortness of breath Intake Note: pt is here as a new patient ,that she notices when she jogs at an incline and stairs causes her short of breath. only smoked for 6 years but around second hand smoke. 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 HER CHIEF COMPLAINT IS GETTING SHORT OF BREATH WITH SOME TIGHTNESS IN THE CHEST ON WALKING UP HILL OR CLIMBING 1 OR 2 FLIGHTS OF STAIRS. SHE HAS EXPERIENCED THIS IN THE LAST 3 YEARS. IT HAS NOT BEEN PROGRESSIVE. PRIOR TO THIS SHE USED TO JOG AND EXERCISE WITHOUT ANY PROBLEMS. NOW FOR THE LAST 3 YEARS SHE HAS NOT BEEN JOGGING BUT SHE CONTINUES TO BE ACTIVE. SHE HAS HAD NO REAL WHEEZING ATTACKS. OF NOTE IS THE FACT THAT SHE DID SMOKE FOR 2-3 YEARS IN HER TEENAGE, BUT SHE REMEMBERS SHE QUIT WHEN SHE WAS 19 YEARS OLD. BOTH PARENTS HAVE BEEN HEAVY SMOKER THE MOTHER SUFFERS FROM COPD/BRONCHIECTASIS, AND ALSO HAS HAD DIAGNOSIS OF ATYPICAL TUBERCULOSIS, BEING TREATED WITH MEDS. SHE ALSO HAS HISTORY OF LOW-GRADE UPPER RESPIRATORY ALLERGIES ESPECIALLY NASAL CONGESTION WITH SOME POSTNASAL DRIP, SINCE CHILDHOOD. MANY YEARS AGO SHE DID HAVE SKIN TESTING . NO DEFINITE TRIGGER WAS IDENTIFIED AND SHE DID NOT HAVE ANY IMMUNOTHERAPY. NOW FOR SHORTNESS OF BREATH ON EXERTION SHE HAS UNDERGONE CARDIAC WORKUP WHICH IS ESSENTIALLY NORMAL. [facility] Medical History (Updated 01/16/25 @ 13:32 by Anahi Antony MD) Exertional dyspnea Eosinophilia Bronchial asthma Allergic rhinitis Surgical History History of Mohs micrographic surgery for skin cancer Family History Father No problems noted. Mother Lung disease Social History Patient Tobacco Use Status: Former Tobacco user Review of Systems Const All systems reviewed & are unremarkable except as noted in HPI and below Eyes Reports no additional complaints ENT Reports nasal congestion (MILD OFF AND ON) and Reports nasal discharge Card Reports no additional complaints and Reports dyspnea on exertion Resp Reports as per HPI and Reports dyspnea on exertion GI Reports no additional complaints Reports no additional complaints Musc Reports no additional complaints Skin/Breast Reports system reviewed and no additional complaints, except as documented Neuro Reports no additional complaints Psych Reports no additional complaints Darryl/Lymph Reports no additional complaints Aller/Immun Reports no additional complaints Physical Exam Vital Signs: Last Vital Signs Pulse 84 01/16/25 11:14 BP 110/70 01/16/25 11:14 Pulse Ox 100 01/16/25 11:14 Oxygen Delivery Method Room Air 01/16/25 11:14 BMI result Body Mass Index 21.1 Const General: healthy appearing, comfortable, no acute distress, alert and awake Orientation/consciousness: patient oriented x3 HEENT Head: Yes normal to inspection General nose exam: No nasal polyps present, No nasal discharge present and Other nasal findings present (NO ACTIVE NASAL CONGESTION OR POLYPS NOTED) Face and sinus: Yes sinuses nontender Mouth: oropharynx normal Throat: Yes posterior oropharynx normal Eyes General: appearance normal, both eyes and all related structures Neck Neck: Yes normal visual inspection, Yes no lymphadenopathy, Yes trachea midline and Yes no JVD Thyroid: Thyroid normal Chest Chest palpation & inspection: normal inspection of the chest, normal palpation of entire chest wall and no tenderness Resp Other: CHEST IS SYMMETRICAL. PERCUSSION NOTE RESONANT ON BOTH SIDES. SHE HAS GOOD VESICULAR BREATH SOUNDS. NO ADVENTITIOUS SOUNDS ARE HEARD . Cardio Palpation: normal PMI Rate: regular rate Rhythm: regular rhythm Heart sounds: no gallops and no murmurs Peripheral pulses: Peripheral pulses 2+ throughout GI Palpation (GI): Soft to palpation, nontender, No hepatosplenomegaly present and no masses Auscultation: normal bowel sounds Back/Spine/Pelvis Thoracic/Lumbar Spine: thoracic and lumbar spine normal to inspection Skin General skin exam: no rashes or lesions noted Neuro General: patient oriented x3 and no focal motor deficits Cranial nerves: Yes CN's II-XII intact bilaterally Extrem General: Yes normal to inspection, Yes no clubbing, cyanosis or edema and Yes no calf tenderness Psych Appearance: grossly normal and well kempt Speech and movement: Normal speech and movement present Results Reviewed Results Reviewed: CHEST XRAY TODAY : NORMAL CBC : I reviewed results of CBC since 2019 , and there is striking finding of EIOSINOPHILIA . 2020 8.7 % 2.22 6.9 % 2023 7.6 % 10/21/2024 = 8.7 % Assessment & Plan Assessment & Plan (1) Allergic rhinitis: Comment: SHE HAS HISTORY OF LOW-GRADE ALLERGIC RHINITIS FOR MANY YEARS, SYMPTOM MEDICALLY IT IS NOT VERY ACTIVE AND SHE HAS NOT REQUIRED TO USE ANY DECONGESTANTS ON A REGULAR BASIS. Code(s): J30.9 - Allergic rhinitis, unspecified Category: Medical Plan: I JUST EDUCATED HER ABOUT LOW-GRADE SYMPTOMS AND PRESENCE OF EOSINOPHILIA (2) Bronchial asthma: Comment: HISTORY OF EXERTIONAL DYSPNEA, MOST LIKELY SECONDARY TO EXERCISE INDUCED ASTHMA, MILD. THIS MAY ALSO BE RELATED TO EOSINOPHILIA. Code(s): J45.909 - Unspecified asthma, uncomplicated Category: Medical Plan: SYMPTOMS ARE NOT VERY SIGNIFICANT AND SHE DOES NOT NEED ANY SPECIFIC TREATMENT AT THIS TIME. SHE DOES HAVE ALBUTEROL INHALER ON HAND AND HAS NOT USED IT. SHE SAY SHE JUST SLOWS DOWN AND SHE IS OKAY (3) Eosinophilia: Comment: NOTED ABOVE SHE HAS HAD EOSINOPHILIA ALL ALONG FOR THE PAST FEW YEARS, SHE HAS HISTORY OF LOW-GRADE ALLERGIC RHINITIS SHE MAY HAVE HAD EOSINOPHILIA ALL ALONG. Code(s): D72.10 - Eosinophilia, unspecified Category: Medical Plan: PULMONARY FUNCTION TEST IS ORDERED AND DEPENDING UPON THE SEVERITY OF OBSTRUCTIVE DISORDER. WE CAN DISCUSS ABOUT TREATMENT. I DISCUSSED WITH HER THE RELATIONSHIP OF EOSINOPHILIA AND RESPIRATORY SYMPTOMS. ONLY IF SYMPTOMS ARE SIGNIFICANT IN SPITE OF INITIAL SYMPTOMATIC TREATMENT, THEN WE WILL HAVE TO CONSIDER TREATMENT WITH ANTI ALLERGY REGIMENS AND ESPECIALLY BIOLOGIC TREATMENT. Orders: Orders XR chest 2V Today R06.02 - Shortness of breath PFT pulmonary function test Today D72.10 - Eosinophilia, unspecified, J30.9 - Allergic rhinitis, unspecified, R06.09 - Other forms of dyspnea Coding Level of Care Code New Pt Level 4 (89562) Diagnoses Allergic rhinitis J30.9 Bronchial asthma J45.909 Eosinophilia D72.10
[2025-01-16 11:14] VITALS: BP 110/70; PULSE 84; O2SAT 100; BMI 21.1
--- OUTSIDE RECORDS SUMMARY | 2025-01-16 14:01 | XMS_ITS | Patient Health Record ---
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 Panel Fa st Reviewed date:10/24/2024 09:16:55 AM Interpretation: Performing Lab:[facility] [place], [address] [place] [phone] Notes/Report: Sodium 143 135-145 mmol/L Potassium 3.9 [...] Panel Reviewed date:10/21/2024 04:56:22 PM Interpretation: Performing Lab:[facility] [place], [address] [place] [phone] Notes/Report: Triglycerides 126 <150 mg/dL Desirable Triglyceride: [...] t Reviewed date:10/21/2024 04:56:44 PM Interpretation: Performing Lab:[facility] [place], [address] [place] [phone] Notes/Report: Urine, Clean Catch Color Urine Dark Yellow Appearance Urine Cloudy PH 5.5 5.0-9.0 Glucose Urine UA Negative Negative mg/dL Urine Blood Negative Negative Specific [place] - Urine 1.025 1.005-1.025 Urine Protein Trace Neg-Trace mg/dL Urine Ketones Trace Negative mg/dL Nitrite Urine Negative Negative Leukocyte Esterase Urine Moderate (2+) Negative RBC Urine 0-2 0-2 /HPF WBC Urine >50 0-5 /HPF Squamous Epithelial Cell Urine >20 0-2 /HPF Bacteria Urine 2+ None Seen Hyaline Casts Urine 3-5 0-2 /LPF Calcium Reviewed date:12/22/2024 01:44:30 PM Interpretation: Performing Lab:[facility] [place], [address] [place] [phone] Notes/Report: Calcium 10.2 8.4-10.2 mg/dL Calcium Reviewed date:11/01/2024 09:53:35 AM Interpretation: Performing Lab:[facility] [place], [address] [place] [phone] Notes/Report: Calcium 10.3 8.4-10.2 mg/dL Urine Culture Reviewed date:10/22/2024 04:58:53 PM Interpretation: Performing Lab:[facility] [place], [address] [place] [phone] Notes/Report: Urine Culture Report Result Urine Culture 50,000 to 100,000 cfu/ml Urine Culture Mixed bacterial val a characteristic of Urine Culture urogenital contamination. XR chest 2V (Not yet review ed by provider) Interpretation: Performing Lab: Notes/Report: [address] [place] [address] XRay Report Signed Patient: Vanesa Stanley MR#: [id number] : 1970 Acct:[id number] Age/Sex: 54 / F ADM Date: 01/16/25 Loc: [facility] Attending Dr: Feng Farris MD Ordering Physician: Feng Farris MD Date of Service: 01/16/25 Procedure(s): XR chest 2V Accession Number(s): [id number] cc: Feng Farris MD; Simon Limon MD Reason for Exam: R06.02 - Shortness of breath EXAMINATION: XR CHEST CLINICAL INFORMATION: R06.02 - Shortness of breath COMPARISON: None available. TECHNIQUE: 2 views of the chest were obtained. FINDINGS: The cardiac, hilar, and mediastinal contours are normal. The lungs are clear bilaterally. There is no pneumothorax or pleural effusion. There is no focal osseous or soft tissue abnormality. XR/XR chest 2V IMPRESSION: Normal chest. Electronically signed by: Eriberto Murguia MD 01/16/2025 12:19 PM [facility] Dictated By: Eriberto Murguia MD Signed By: <Electronically signed by Eriberto Murguia MD in OV> 01/16/25 1219 DD/ 1211 TD/TT: 01/16/25 1214 Special Librarian: [address] [place] [address] XRay Report Signed Patient: Vanesa Stanley MR#: [id number] : 1970 Acct:[id number] Age/Sex: 54 / F ADM Date: 01/16/25 Loc: HO.XRAY Attending Dr: Cordell Farris MD Ordering Physician: Feng Farris MD Date of Service: 01/16/25 Procedure(s): XR julia st 2V Accession Number(s): [id number] cc: Feng Farris MD; Simon Limon MD Reason for Exam: R06 .02 - Shortness of breath EXAMINATION: XR CHEST CLINICAL INFORMATION: R06.02 - Shortness o f breath COMPARISON: None available. TECHNIQUE: 2 views of the chest were obtained. FINDINGS: The cardiac, hilar, and mediastinal contours are normal. The lungs are clear bilaterally. There is no pneumothorax or pleural effusion. There is no focal osseous or soft tissue abnormality. XR/XR chest 2V IMPRESSION: Normal chest. Electronically apolinar d by: Eriberto Murguia MD 01/16/2025 12:19 PM [facility] Dictated By: Eriberto Murguia MD Signed By: <Electronically signed by Eriberto Murguia MD in OV> 01/16/25 1219 DD/ 1211 TD/TT: 01/16/25 1214 Special Librarian: Reason For Referral Reason Shortness of breath [...] Referral Priority Routine Referral Appointment Date 01/16/2025 Medications Medication SIG (Take, Route, Frequency, Duration) [...] needed Inhalation every 4 hrs 08/28/2015 Not-[place] g Ibuprofen 800 MG 1 tablet Orally Thre e times a day for 90 days Not-[place]se[place] ng Immunizations Vaccine Route Administration Date Status Comme nts Flu Vaccine Unknown 12/26/2015 Administered [facility] Fluarix Quadrivalent IM Intramuscular 01/26/2017 Administsaige suero [facility] [place] Fluarix Quadrivalent Unknown 01/13/2019 Administered At work Fluarix Quadrivalent Unknown 01/01/[address] [facility] SARS-COV-2 Moderna Unknown 07/04/2020 Administered SARS-COV-2 Moderna Unknown 08/01/2020 Administered Fluarix Quadrivalent - 150 IM Intramuscular 12/22/2024 Administered Flu Vaccine Unknown 08/17/2014 Refused Social [...] Status W/U Status Risk Notes Problem Hypercalcemia (05647757) Hypercalcemia (E83.52) Active confirmed Problem 05023631 Lumbar disc disease (M51.9) Active confirmed Problem 941860800 Mild intermittent asthma without complication (J45.20) Active confirmed Problem 1971049 Migraine with aura and without status migrainosus, not intractable (G43.109) Active confirmed Problem 857123795 Raynauds disease without gangrene (I73.00) Active confirmed Problem 152922022183505 Carpal tunnel syndrome of right wrist (G56.01) Active confirmed Problem Food allergy (064014207) Food allergy (Z91.018) Active confirmed Problem 476339666 Recurrent sinus infections (J32.9) Active confirmed Problem 182716940 Other microscopic colitis (K52.838) Active confirmed Vital Signs Blood pressure diastolic 50 mm Hg 10/31/2024 Height 64 in 10/31/2024 Blood pressure systolic 112 mm Hg 10/31/2024 Weight 114 lbs 10/31/2024 BMI 19.57 kg/m2 10/31/2024 Encounters Encounter Location Date Provider Diagnosis Simon Limon MD [address] [place] [id number] 04/01/2024 Simon Limon Acute maxillary sinusitis, recurrence not specified J01.00 Simon Limon MD [address] [place] [address] [id number] 10/21/2024 Simon Limon Blood tests for routine general physical examination Z00.00 Simon Limon MD [address] [place] [address] [id number] 12/22/2024 Simon Limon Hypercalcemia E83.52 and Encounter for administration of vaccine Z23 Simon Limon MD [address] [place] [address] [id number] 10/31/2024 Simon Limon Hypercalcemia E83.52 ; Annual physical exam Z00.00 and Shortness of breath R06.02 Simon Limon MD [address] [place] [id number] 03/21/2024 Simon Limon MD [address] [place] [address] [id number] 06/22/2024 Simon Limon MD [address] [place] [address] [id number] 06/23/2024 Simon Limon MD [address] [place] [address] [id number] 07/04/2024 Simon Limon MD [address] [place] [address] [id number] 07/04/2024 Simon Limon MD [address] [place] [address] [place] [address] [id number] 08/09/2024 Simon Limon Assessments Encounter Date Diagnosis (ICD Code) Assessment Notes Treatment Notes Treatment Clinical Notes Section Notes 04/01/2024 Acute maxillary sinusitis, recurrence not specified (ICD-10 - J01.00) patient verbalized understandingofmedication and directions for use 10/21/2024 Blood tests for routine general physical examination (ICD-10 - Z00.00) 12/22/2024 Hypercalcemia (ICD-10 - E83.52) 12/22/2024 Encounter for administration of vaccine (ICD-10 - Z23) 10/31/2024 Hypercalcemia (ICD-10 - E83.52) pending lab, will contine t monitor 10/31/2024 Annual physical exam (ICD-10 - Z00.00) labs reviewed and discussed with patient 10/31/2024 Shortness of breath (ICD-10 - R06.02) needs referral to pulmonary and notes from cardiology this spring / Cardiology note will be scanned in chart 10/31/2024 Other Plan Of Treatment Pending Test Test Name Order Date Electrocardiogram (EKG) 09/12/2016 XR chest 2V 01/16/2025 Next Appt Details Provider Name:Simon tavarez, 05/04/2025 10:00:00 AM, [address] [place] [address], [address], [phone], Provider Name:Simon tavarez, 10/26/2025 07:30:00 AM, [address] [place] [address], [address], [phone], Provider Name:Simon tavarez, 11/02/2025 08:30:00 AM, [address] [place] [address], [address], [phone], Insurance Providers Payer Name Payer Address Payer Phone Subscriber Number Group Number Insured Name Patient Relationship to Insured Coverage Start Date Coverage End Date [facility] [address] [place], [place] [id number] Vanesa Stanley Self - patient is the insured Medical (General) History Medical History History ICD Code no need for further A1C Colonoscopy 06/02/[address] Campbell
--- OUTSIDE RECORDS SUMMARY | 2025-01-16 14:02 | XMS_ITS | Patient Health Record ---
Author Organization [facility] Address [address] [place] [address] Care Team Providers Care Shipping Coordinator Name Role Phone Braxton PHAM, Simon Primary Care Provider Jose Antonio Pettit [phone] Allergies Allergen (clinical drug ingredient) Drug/Non Drug Allergy documented on EMR Reaction Allergy Type Onset Date Status mesalamine Lialda Diarrhea,H/A,abd ominal pain Drug Allergy Active Reason For Referral No Information Medications Medication SIG (Take, Route, Frequency, Duration) Notes Start Date End Date Status Dicyclomine HCl 10 MG TAKE 1 TO 2 CAPSUL ES BY MOUTH 4 TIMES DAILY NEEDED.; Duration: 15 Active 04/04 1-20 MG-MCG TAKE 1 TABLET BY MOUTH EVERY DAY Oral; Duration: 28 BCP Active Ibuprofen 800 MG TAKE [...] Problem Status W/U Status Risk Notes Problem Abdominal bloating (639818518) Abdominal bloating (R14.0) Active confirmed Problem Altered bowel function (64820489) Change in bowel function (R19.4) Active confirmed Problem Lymphocytic colitis (3872675742) Lymphocytic colitis (K52.832) Active confirmed Problem Altered bowel function (76515485) Change in bowel function (R19.8) Active confirmed Plan Of Treatment Pending Test Test Name Order Date CRP 06/02/2017 CBC with MANUAL DIFFERENTIAL 06/02/2017 SED RATE (ESR) 06/02/2017 Future Test Test Name Order Date COLONOSCOPY 04/23/2017 Insurance Providers Payer Name Payer Address Payer Phone Subscriber Number Group Number Insured Name Patient Relationship to Insured Coverage Start Date Coverage End Date [facility] [employer] CLAIMS [address] [place] [address] [phone] [id number] KENDRA STANLEY Self - patient is the insured Medical (General) History Medical History History ICD Code Asthma--inhaler prn Denies ID,DM,CVA,,renal disease Kidney stones--ESWL Raynaud's--uses Norvasc prn Lymphocytic [...]
--- OUTSIDE RECORDS SUMMARY | 2025-01-16 14:02 | XMS_ITS | Clinical Summary ---
Author Organization [facility] Address [address] [place] [phone] Phone Care Team Providers Care Filters Assembler Name Role Phone Simon Limon MD Primary [...] 06/07/2021 ZOSTER VACCINES (1 of 2) 06/07/2021 INFLUENZA VACCINE (#1) 2024 COVID-19 VACCINE (1 - 2024-2 6 season) 2024 RSV VACCINE (1 - 1-dose 75+ series) 06/07/2046 HEPATITIS A VACCINES Aged Out No long [...] topic Medical Devices Not on file Insurance [facility] Care Teams Filters Assembler Relationship Specialty Start Date End Date Simon Limon MD [address] [place] [address] [place] [address] PCP - General Internal Medicine 11/26/23 Additional Source Comments The information contained in this document represents components of the legal health record. It is not the complete legal health record.[facility]
== END 2025-01-16 11:55 | disposition home or self-care (01) ==
LOC: HO.HPS 11:04
PROVIDERS: PCP Internal Medicine; Visit Provider Internal Medicine
DX: J30.9 Allergic rhinitis, unspecified (principal); J45.909 Unspecified asthma, uncomplicated; D72.10 Eosinophilia, unspecified
CPT/HCPCS: 99204

== ENCOUNTER 2025-01-16 11:04 | Outpatient (REF) | payer OTHER, SELFPAY ==
--- NOTE | ~2025-01-16 | XR_ITS ---
EXAMINATION: XR CHEST CLINICAL INFORMATION: R06.02 - Shortness of breath COMPARISON: None available. TECHNIQUE: 2 views of the chest were obtained. FINDINGS: The cardiac, hilar, and mediastinal contours are normal. The lungs are clear bilaterally. There is no pneumothorax or pleural effusion. There is no focal osseous or soft tissue abnormality. XR/XR chest 2V IMPRESSION: Normal chest. Electronically signed by: Eriberto Murguia MD 01/16/2025 12:19 PM [facility]
== END 2025-01-16 11:05 | disposition home or self-care (01) ==
LOC: HO.XRAY 11:04
PROVIDERS: PCP Internal Medicine; Visit Provider Internal Medicine
DX: J45.909 Unspecified asthma, uncomplicated (principal); D72.10 Eosinophilia, unspecified; Z79.899 Other long term (current) drug therapy; Z87.891 Personal history of nicotine dependence
CPT/HCPCS: 71046

== ENCOUNTER → 2025-01-16 12:06 | Outpatient (BNV) | payer OTHER, SELFPAY | PROVIDERS: PCP Internal Medicine; Visit Provider Radiology Diagnostic Radiology | DX: R06.02 Shortness of breath (principal) | CPT/HCPCS: 71046 ==